=== PATIENT | female | born 1940 | race Caucasian/White ===

== ENCOUNTER 2016-12-05 12:23 | Day surgery (SDC) | payer OTHER ==
[~2016-12-05 12:23] MED LIST: ASPI1TAB69 PO; AZEL137S EACH NARE; CALC1TAB30 PO; DULC5TAB PO; GABA300C5 PO; HYDR-3580 PO; LEVO.075 PO; LISI40TA PO; MONT10TA4 PO; OMEG100037 PO; ONETAB13 PO; PANT40TA3 PO; PEPCCHW3 PO; PLAV75TA29 PO; PROP20TA3 PO; SIMV80TA PO; ZOLP10TA3 PO
[2016-12-05] MEDS ORDERED: MIDAZOLAM HCL 2 MG/2 ML VIAL ONE ×2 (12:58→14:08)
[2016-12-05] MEDS ORDERED: MUPIROCIN 2% OINT 1 APPLIC/GM SYR NASAL SCH (13:15)
[2016-12-05] MEDS ORDERED: NS 1000 ML IV SCH (13:15)
[2016-12-05] MEDS ORDERED: POVIDONE IODINE 5% (ANTISEPSIS KIT) 4 APPLICATIONS EACH NARE SCH (13:15)
[2016-12-05] MEDS ORDERED: CHLORHEXIDINE GLUCONATE 2 % 1 PACK (2 CLOTHS) TOP SCH (13:15)
[2016-12-05] MEDS ORDERED: ceFAZolin 2 GM PREMIX 50 ML IV SCH (13:15)
[2016-12-05] MEDS ORDERED: ALBU2TAB4 PO (13:32)
[2016-12-05] MEDS ORDERED: VERA120T3 PO (13:32)
[2016-12-05] MEDS ORDERED: AZEL1SPR2 EACH NARE ×2 (13:32)
[2016-12-05] MEDS ORDERED: CLON0.1T PO (13:32)
[2016-12-05] MEDS ORDERED: IPRASOL NEB (13:32)
[2016-12-05] MEDS ORDERED: ZOFR4TAB PO (13:32)
[2016-12-05] MEDS ORDERED: AZEL137S EACH NARE (13:32)
--- NOTE | 2016-12-05 15:04 | MR ---
cc: RITCHIE CORTEZ MD, BETH A. MD DATE: 12/05/2016. PREPROCEDURE DIAGNOSIS: Cryptogenic stroke. POSTPROCEDURE DIAGNOSIS: Successful loop recorder insertion. PROCEDURE PERFORMED: Loop recorder insertion. PERFORMING PHYSICIAN: Ritchie Cortez M.D. DESCRIPTION OF THE PROCEDURE: The patient was brought to the DOC unit in postabsorptive state. After informed consent was obtained, a [employer] LINQ loop recorder was inserted subcutaneously to the left chest. Because of the patient's left breast reconstruction, a more inferior approach was used to provide adequate clearance from her breast reconstruction. Initial R-wave was 0.22 mV. Tachybrady pause and atrial fibrillation detection was enabled. The serial number was [id number]. MD IVAN Brown/ALBINO /2:40 PM /3:01 PM
== END 2016-12-05 14:30 | disposition home or self-care (01) ==
LOC: HDOC 12:23 → HDIC 12:24 → HDOC 14:30
PROVIDERS: ATTEND Nuclear Medicine Nuclear Cardiology
DX: I48.91 Unspecified atrial fibrillation (principal); I63.9 Cerebral infarction, unspecified; I11.9 Hypertensive heart disease without heart failure; I25.10 Atherosclerotic heart disease of native coronary artery without angina pectoris
CPT/HCPCS: 33282; C1764; J0690; J2250; J3010; J7030

== ENCOUNTER 2017-01-28 15:23 | Observation (INO) | payer OTHER ==
[~2017-01-28] VITALS: Ht 165.1 cm; Wt 70.5 kg
[~2017-01-28 15:23] MED LIST changes: +ALBU2TAB4 PO; -ASPI1TAB69 PO; +AZEL1SPR2 EACH NARE; -CALC1TAB30 PO; +CLON0.1T PO; -DULC5TAB PO; -HYDR-3580 PO; +IPRASOL NEB; -LISI40TA PO; +VERA120T3 PO; +ZOFR4TAB PO
[2017-01-28 15:30] VITALS: BP 151/62; PULSE 55; RESP 20; TEMP 97.8; O2SAT 99
[2017-01-28] MEDS ORDERED: SODIUM CHLOR 0.9% 1000 ML INJ 1,000 ML IV ONE (15:38)
[2017-01-28] MEDS ORDERED: IOHEXOL 350 MG/ML 10 ML VIAL (for RAD DIAG) IV ONE (15:54)
[2017-01-28] MEDS ORDERED: SODIUM CHLORID 0.9% 500 ML INJ 500 ML IV ONE (16:00)
--- NOTE | 2017-01-28 16:01 | RADRPT ---
EXAM DATE/TIME: 01/28/2017 15:40 [facility] COMPARISON: CT BRAIN W/O CONTRAST, October 20, 2016, 11:34. INDICATIONS : Stroke alert; left sided weakness. RADIATION DOSE: 56.35 CTDIvol (mGy) This report was called by Dr. Kitchen to Dr. Jackson at 3: 56 PM MEDICAL HISTORY : Non-responsive. SURGICAL HISTORY : Non-responsive. ENCOUNTER: Initial ACUITY: 1 day PAIN SCALE: Non-responsive LOCATION: cranial TECHNIQUE: Multiple contiguous axial images were obtained of the head. Using automated exposure control and adj ustment of the mA and/or kV according to patient size, radiation dose was kept as low as reasonably a chievable to obtain optimal diagnostic quality images. FINDINGS: CEREBRUM: The ventricles are normal for age. No evidence of midline shift, mass lesion, hemorrhage or acute in farction. No extra-axial fluid collections are seen. There is decreased density in the periventricul ar white matter. POSTERIOR FOSSA: The cerebellum and brainstem are intact. The 4th ventricle is midline. The cerebellopontine angle i s unremarkable. EXTRACRANIAL: The visualized portion of the orbits is intact. SKULL: The calvaria is intact. No evidence of skull fracture. CONCLUSION: No acute abnormality, area of hemorrhage or mass effect is seen. There is decreased density in the pe riventricular white matter likely related to small vessel ischemic change. Bud Kitchen MD on January 28, 2017 at 15:56 Board Certified Radiologist. This report was verified electronically.
[2017-01-28 16:15] VITALS: BP 111/55; PULSE 59; RESP 15; O2SAT 97
--- NOTE | 2017-01-28 16:15 | PD ---
HPI Chief Complaint: Stroke Alert Time Seen by Provider: 15:38 Travel History International Travel<30 days: No Contact w/Intl Traveler<30days: No Traveled to known affect area: No History of Present Illness HPI Patient 76-year-old female presents emergency department for evaluation of left- sided weakness. Patient states symptoms onset approximately 40 minutes prior to arrival. 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 She states that she had a a stroke on the right side of her brain with some left-sided deficits which has completely resolved approximate 3 months ago. She denies any headache fevers congestions pain nausea vomiting or diarrhea. Denies any visual field loss. PFSH Past Medical History Arthritis: Yes Asthma: Yes Autoimmune Disease: No Blood Disorders: No Anxiety: No Depression: No Heart Rhythm Problems: No Cancer: Yes (LEFT BREAST, SMALL SQUAMOUS ON HER RIGHT LEG) Cardiovascular Problems: Yes (raynauds disease) High Cholesterol: Yes Chemotherapy: Yes Chest Pain: No Congestive Heart Failure: No COPD: No Cerebrovascular Accident: Yes (10/24/16) Diabetes: No Diminished Hearing: No Endocrine: No GERD: No Genitourinary: No Hiatal Hernia: No Hypertension: Yes Immune Disorder: No Kidney Stones: No Musculoskeletal: Yes Neurologic: No Psychiatric: No Reproductive: No Respiratory: Yes Migraines: Yes (13 years) Radiation Therapy: No Renal Failure: No Seizures: No Sickle Cell Disease: No Sleep Apnea: No Thyroid Disease: No Ulcer: No ?: Not Past Surgical History AICD: No Appendectomy: Yes Arteriovenous Shunt: No Genitourinary Surgery: Yes (BLADDER REPAIR) Gynecologic Surgery: Yes (HYSTERECTOMY) Hysterectomy: Yes Insulin Pump: No Joint Replacement: Yes Mastectomy: Yes (LEFT) Neurologic Surgery: Yes (HEAD TUMOR) Pacemaker: No Tonsillectomy: Yes Other Surgery: Yes Social History Alcohol Use: Yes (OCCAISIONAL) Tobacco Use: No Substance Use: No Allergies-Medications (Allergen,Severity, Reaction): Coded Allergies: Amlodipine (Verified Allergy, Severe, 01/28/17) Benadryl (Verified Allergy, Severe, 01/28/17) Hydrochlorothiazide (Verified Allergy, Severe, 01/28/17) Reported Meds & Prescriptions Reported Meds & Active Scripts Active Plavix (Clopidogrel Bisulfate) 75 Mg Tab 75 Mg PO DAILY Reported [place] (Hydrocodone-Acetaminophen) 10-325 Mg Tab 1 Tab PO BID PRN Linzess (Linaclotide) 145 Mcg Cap 145 Mcg PO HS Caltrate 600+D (Calcium Carbonate-Cholecalciferol) 600-800 Mg-Unit Tab 1 Tab PO DAILY Ventolin Hfa 18 GM Inh (Albuterol Sulfate) 90 Mcg/Act Aer 2 Puff INH DAILY PRN Crestor (Rosuvastatin Calcium) 40 Mg Tab 40 Mg PO HS Gabapentin 600 Mg Tab 600 Mg PO HS Verapamil (Verapamil HCl) 120 Mg Tab 120 Mg PO DAILY Zofran (Ondansetron HCl) 4 Mg Tab 4 Mg PO TID PRN Dymista Nasal [place] (Azelastine-Fluticasone Nasal [place]) 137-50 Mcg [place] 1 [place] EACH NARE DAILY To each nostril. Duoneb (Ipratropium-Albuterol Neb) 0.5-2.5 Mg/3 Ml Neb 1 Nebule NEB DAILY PRN Azelastine Nasal [place] (Azelastine HCl) 0.1% [place] 1 [place] EACH NARE DAILY Fish Oil 1000 mg (Angie-3 Fatty Acids) 1 Cap Cap 1,000 Mg PO DAILY One Daily For Women (Multiple Vitamins W/ Minerals) 1 Tab Tab 1 Tab PO DAILY Propranolol (Propranolol HCl) 20 Mg Tab 20 Mg PO HS Zolpidem (Zolpidem Tartrate) 10 Mg Tab 10 Mg PO HS Montelukast (Montelukast Sodium) 10 Mg Tab 10 Mg PO HS Pantoprazole (Pantoprazole Sodium) 40 Mg Tab 40 Mg PO DAILY Synthroid (Levothyroxine Sodium) 75 Mcg Tab 75 Mcg PO DAILY Review of Systems Except as stated in HPI: all other systems reviewed are Neg Physical Exam Narrative GENERAL: Well-developed well-nourished no apparent distress SKIN: Warm and dry. HEAD: Atraumatic. Normocephalic. EYES: Pupils equal and round. No scleral icterus. No injection or drainage. ENT: No nasal bleeding or discharge. Mucous membranes pink and moist. NECK: Trachea midline. No JVD. CARDIOVASCULAR: Regular rate and rhythm. No murmur appreciated. RESPIRATORY: No accessory muscle use. Clear to auscultation. Breath sounds equal bilaterally. GASTROINTESTINAL: Abdomen soft, non-tender, nondistended. Hepatic and splenic margins not palpable. MUSCULOSKELETAL: No obvious deformities. No clubbing. No cyanosis. No edema. NEUROLOGICAL: Awake alert and oriented. Cranial nerves II through XII are grossly intact and nonfocal, 5 out of 5 strength in upper and lower right extremities. 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 DTRs are normal, Babinski sign downgoing bilaterally. PSYCHIATRIC: Appropriate mood and affect; insight and judgment normal. Data Data Last Documented VS Vital Signs Date Time Temp Pulse Resp B/P Pulse Ox O2 Delivery O2 Flow Rate FiO2 01/28/17 18:00 59 21 126/59 98 Room Air 01/28/17 15:30 97.8 Orders Diet Npo (01/28/17 Dinner) Activity Bed Rest (01/28/17 ) Electrocardiogram (01/28/17 ) I-Stat Creatinine (01/28/17 15:38) I-Stat Profile (01/28/17 15:38) Prothrombin Time / Inr (Pt) (01/28/17 15:38) Act Partial Throm Time (Ptt) (01/28/17 15:38) Complete Blood Count With Diff (01/28/17 15:38) Fibrinogen (01/28/17 15:38) Creatine Kinase (Cpk) (01/28/17 15:38) Troponin I (01/28/17 15:38) Ua Includes Microscopic (01/28/17 15:38) Drug Screen, Random Urine (01/28/17 15:38) Type And Screen (01/28/17 15:38) Ct Brain W/O Iv Contrast(Rout) (01/28/17 ) Cta Brain W Iv Contrast W 3d (01/28/17 15:38) Cta Neck W Iv Contrast W 3d (01/28/17 15:38) Consult Neurology (01/28/17 ) Blood Glucose (01/28/17 15:38) Ecg Monitoring (01/28/17 15:38) Neuro Checks Q2HX12,Q4H (01/28/17 15:38) Nursing Bedside Swallow Assess .ONCE (01/28/17 15:38) Iv Access Insert/Monitor (01/28/17 15:38) NPO (01/28/17 15:38) Oximetry (01/28/17 15:38) Oxygen Administration (01/28/17 15:38) Sodium Chlor 0.9% 1000 Ml Inj (Ns 1000 M (01/28/17 15:38) Resp Oxygen Wilmer C Titrat 1-4 L (01/28/17 15:38) Cath For Specimen (01/28/17 15:38) Iohexol 350 Inj (Omnipaque 350 Inj) (01/28/17 15:54) Sodium Chlorid 0.9% 500 Ml Inj (Ns 500 M (01/28/17 16:00) [place] (01/28/17 15:56) (Hub Use Only)Inp Phy Cons/Ref (01/28/17 ) Aspirin Chew (Aspirin Chew) (01/28/17 17:30) Admit Order (Ed Use Only) (01/28/17 ) Labs Laboratory Tests Test 01/28/17 01/28/17 01/28/17 15:30 15:38 16:50 White Blood Count 6.8 TH/MM3 Red Blood Count 4.11 MIL/MM3 Hemoglobin 12.0 GM/DL Hematocrit 35.9 % Mean Corpuscular Volume 87.4 FL Mean Corpuscular Hemoglobin 29.3 PG Mean Corpuscular Hemoglobin 33.5 % Concent Red Cell Distribution Width 13.2 % Platelet Count 345 TH/MM3 Mean Platelet Volume 7.5 FL Neutrophils (%) (Auto) 55.8 % Lymphocytes (%) (Auto) 26.9 % Monocytes (%) (Auto) 13.3 % Eosinophils (%) (Auto) 3.0 % Basophils (%) (Auto) 1.0 % Neutrophils # (Auto) 3.8 TH/MM3 Lymphocytes # (Auto) 1.8 TH/MM3 Monocytes # (Auto) 0.9 TH/MM3 Eosinophils # (Auto) 0.2 TH/MM3 Basophils # (Auto) 0.1 TH/MM3 CBC Comment DIFF FINAL Differential Comment Prothrombin Time 10.7 SEC Prothromb Time International 1.0 RATIO Ratio Activated Partial 29.4 SEC Thromboplast Time Fibrinogen 275 mg/dL Blood Type O POSITIVE Antibody Screen NEGATIVE Bedside Hemoglobin 12.6 G/DL Bedside Hematocrit 37.0 % Bedside Sodium 133 MMOL/L Bedside Potassium 4.6 MMOL/L Bedside Chloride 99 MMOL/L Bedside Blood Urea Nitrogen 14 MG/DL Bedside Creatinine 1.1 MG/DL Bedside Glucose 99 MG/DL Total Creatine Kinase 104 U/L Troponin I LESS THAN 0.02 NG/ML Urine Color YELLOW Urine Turbidity CLEAR Urine pH 5.5 Urine Specific Harmans 1.023 Urine Protein NEG mg/dL Urine Glucose (UA) NEG mg/dL Urine Ketones NEG mg/dL Urine Occult Blood NEG Urine Nitrite NEG Urine Bilirubin NEG Urine Urobilinogen LESS THAN 2.0 MG/DL Urine Leukocyte Esterase NEG Urine RBC LESS THAN 1 /hpf Urine WBC LESS THAN 1 /hpf Urine Squamous Epithelial 2 /hpf Cells Urine Oval Fat Bodies Urine Opiates Screen POS Urine Barbiturates Screen NEG Urine Amphetamines Screen NEG Urine Benzodiazepines Screen NEG Urine Cocaine Screen NEG Urine Cannabinoids Screen NEG MDM Medical Screen Exam Complete: Yes Emergency Medical Condition: Yes Differential Diagnosis TIA, stroke, altered mental status, intracranial bleed Narrative Course Patient was roomed in the emergency department, recognizing left-sided deficits which are mild patient does meet stroke alert criteria stroke alert was called. Patient was discussed with Dr. Chavez prior to her going to CAT scan. At this point the patient's NIH scale is 2 for me the adult daycare coordinator actually got a score of 1. This is contraindication to TPA. We discussed that unless her symptoms started to worsen she will not be a candidate for TPA. Patient was taken to CAT scan she had no evidence of bleed, CT angios performed after i-STAT chemistries were obtained and showed a 40% stenosis of the left ICA origin which is unchanged from her previous CTA. This is a hemodynamically insignificant stenosis. No bleeding occlusion was seen on her CTA and no other lesion was reported by radiology. Last 24 hours Impressions Neck CTA 01/28/17 1538 Signed Impressions: Service Date/Time: Saturday, January 28, 2017 15:41 - CONCLUSION: Stable exam without hemodynamically significant stenosis involving either carotid artery. An ulcerated plaque generates a 40%% stenosis of the left ICA origin. Kee Ellison Jr., MD Head CTA 01/28/17 1538 Signed Impressions: Service Date/Time: Saturday, January 28, 2017 15:41 - CONCLUSION: 1. No filling defects. 2. Unchanged stenosis involving the distal left M1. 3. Variant anatomy. Kee Ellison Jr., MD Head CT 01/28/17 0000 Signed Impressions: Service Date/Time: Saturday, January 28, 2017 15:40 - CONCLUSION: No acute abnormality, area of hemorrhage or mass effect is seen. There is decreased density in the periventricular white matter likely related to small vessel ischemic change. Bud Kitchen MD Results were discussed with the patient she was head of bed flat and given 500 cc of normal saline. Cautioned advised that she does have a history of CHF. On my reassessment the patient now has 5 out of 5 strength in left upper extremity left lower extremity and appears to have resolved. By definition this is a TIA. Dr. Chavez has arrived to evaluate the patient after her resolution of symptoms. He agrees for observation status for TIA workup. Critical Care Narrative Aggregate critical care time was 31 minutes. Time to perform other separately billable procedures was not included in the critical care time. My time did not include minutes spent treating any other patients simultaneously or on activities that did not directly contribute to the patient's treatment. The services I provided to this patient were to treat and/or prevent clinically significant deterioration that could result in: [, permanent disability, intracranial hemorrhage, organ failure. I provided critical care services requiring my management, as noted below: Chart data review, documentation time, medication orders and management, vital sign assessments/reviewing monitor data, ordering and reviewing lab tests, ordering and interpreting/reviewing x-rays and diagnostic studies, care of the patient and discussion of the patient with the admitting physicians. Stroke Alert NIHSS NIH Stroke Scale Result: 2 NIHSS Time Completed: 15:33 Thrombolytic Contraindications Contraindications Comment: NIH scale too low, resolving Diagnosis Diagnosis: Primary Impression: TIA (transient ischemic attack) Qualified Code: G45.9 - Transient cerebral ischemia, unspecified type Admitting Physician Requests: Observation Scripts Aspirin 325 Mg [id number] Mg PO DAILY #30 TAB Ref 0 Prov:Carie Carlin MD 01/29/17 Condition: Stable Pranav Jackson MD Jan 28, 2017 16:15
--- NOTE | 2017-01-28 16:22 | RADRPT ---
EXAM DATE/TIME: 01/28/2017 15:41 [facility] COMPARISON: CTA BRAIN W 3D RECON, October 23, 2016, 10:40. INDICATIONS : Stroke alert; left sided weakness. IV CONTRAST: 79 cc Omnipaque 350 (iohexol) IV ; Cumulative dose for multiple exams. RADIATION DOSE: 14.32 CTDIvol (mGy) ; Combined studies - Thorax/Abdomen/Pelvis MEDICAL HISTORY : Non-responsive. SURGICAL HISTORY : Non-responsive. ENCOUNTER: Initial ACUITY: 1 day PAIN SCALE: Non-responsive LOCATION: cranial TECHNIQUE: Volumetric scanning was performed using a multi-row detector CT scanner. The data was post processed with a variety of visualization algorithms including full volume maximum intensity projection, multi -planar sliding thin slab reformation, curved planar reformation, and surface rendering techniques. Using automated exposure control and adjustment of the mA and/or kV according to patient size, radiat ion dose was kept as low as reasonably achievable to obtain optimal diagnostic quality images. FINDINGS: There is excellent visualization of the major intracranial arteries out to the second-order branch ve ssels. There is variant anatomy. There is persistent circulation bilaterally. The basilar arter y is supplied via the right vertebral artery. The left terminates in a PICA distribution. A focal bill nosis is seen involving the distal aspects of the left M2 with a 50-60% stenosis. This is stable from the prior study. The remaining vessels are unremarkable. No filling defects observed. There is no ev idence for aneurysm or evidence for vascular malformation. CONCLUSION: 1. No filling defects. 2. Unchanged stenosis involving the distal left M1. 3. Variant anatomy. Kee Ellison Jr., MD on January 28, 2017 at 16:12 Board Certified Radiologist. This report was verified electronically.
--- NOTE | 2017-01-28 16:27 | RADRPT ---
EXAM DATE/TIME: 01/28/2017 15:41 [facility] COMPARISON: CTA CAROTID ARTERIES W 3D RECON, October 23, 2016, 10:40. INDICATIONS : Stroke alert; left sided weakness. IV CONTRAST: 79 cc Omnipaque 350 (iohexol) IV ; Cumulative dose for multiple exams. RADIATION DOSE: 14.32 CTDIvol (mGy) ; Combined studies - Brain/Cervical Spine MEDICAL HISTORY : Non-responsive. SURGICAL HISTORY : Non-responsive. ENCOUNTER: Initial ACUITY: 1 day PAIN SCALE: Non-responsive LOCATION: neck Elevated flow velocities and ICA/CCA ratios have been found to correlate with increased degrees of vessel stenosis, calculated as percentage of diameter relative to a normal segment of distal ICA/CCA. TECHNIQUE: Volumetric scanning was performed using a multirow detector CT scanner. The data was post processed with a variety of visualization algorithms including full-volume maximum intensity projection, multip lanar sliding thin-slab reformation, curved-planar reformation, and surface-rendering techniques. Us ing automated exposure control and adjustment of the mA and/or kV according to patient size, radiatio n dose was kept as low as reasonably achievable to obtain optimal diagnostic quality images. FINDINGS: AORTIC ARCH: There is a three-vessel origin of the great vessels from the aorta. No evidence of ostial narrowing. RIGHT CAROTID: Scattered calcified plaque without ulceration or luminal narrowing utilizing NASCET criteria. There i s a high grade stenosis of the origin of the external carotid artery. The internal carotid artery and common carotid artery are patent. LEFT CAROTID: Partially calcified atheromatous plaque generates a 40% stenosis of the ICA origin. This is also rela krys. The appearance is stable. The CCA, ECA, and remaining extracranial ICA are patent. VERTEBRALS: The vertebral arteries have a symmetric diameter. No stenotic lesions are seen. CONCLUSION: Stable exam without hemodynamically significant stenosis involving either carotid artery. An ulcerate d plaque generates a 40% stenosis of the left ICA origin. Kee Ellison Jr., MD on January 28, 2017 at 16:20 Board Certified Radiologist. This report was verified electronically.
[2017-01-28 16:41] LABS: I-STAT POTASSIUM 4.6 MMOL/L (3.5-4.9); I-STAT SODIUM 133 MMOL/L (138-146)
[2017-01-28 17:01] LABS: CREATINE KINASE 104 U/L (26-192)
[2017-01-28] MEDS ORDERED: GABA600T PO (17:21)
[2017-01-28] MEDS ORDERED: ROSU40 PO (17:21)
[2017-01-28] MEDS ORDERED: VENTAER INH (17:22)
[2017-01-28] MEDS ORDERED: CALTTAB PO (17:22)
[2017-01-28] MEDS ORDERED: LINA145C PO (17:22)
[2017-01-28] MEDS ORDERED: HYDR-3366 PO (17:25)
[2017-01-28 17:26] LABS: BLOOD, URINE NEG (NEG); GLUCOSE,URINE NEG (NEG); KETONE, URINE NEG (NEG); NITRITE,URINE NEG (NEG); PH, URINE 5.5 (5.0-8.5); SQUAMOUS EPITHELIAL CELL URINE 2 /hpf (0-5); URINE COLOR YELLOW (YELLW/STRAW)
[2017-01-28 17:29] LABS: AMPHETAMINE, URINE NEG (NEG); BARBITURATES, URINE NEG (NEG); COCAINE, URINE NEG (NEG)
[2017-01-28] MEDS ORDERED: ASPIRIN 81 MG CHEW TAB CHEW ONE (17:30)
[2017-01-28 17:31] LABS: AUTOMATED NEUTROPHIL # 3.8 TH/MM3 (1.8-7.7); BASOPHIL # 0.1 TH/MM3 (0-0.2); EOSINOPHIL # 0.2 TH/MM3 (0-0.4); HEMATOCRIT 35.9 % (35.0-46.0); HEMO FLAGS DIFF FINAL; LYMPH % 26.9 % (9.0-44.0); LYMPHOCYTE # 1.8 TH/MM3 (1.0-4.8); MEAN CELL VOLUME 87.4 FL (80.0-100.0); MEAN CORPUSCULAR HEMOGLOBIN 29.3 PG (27.0-34.0); MEAN CORPUSCULAR HGB CONC 33.5 % (32.0-36.0); MONO % 13.3 % (0.0-8.0); NEUT % 55.8 % (16.0-70.0); PLATELET COUNT 345 TH/MM3 (150-450); RED BLOOD COUNT 4.11 MIL/MM3 (4.00-5.30); RED CELL DISTRIBUTION WIDTH 13.2 % (11.6-17.2); WHITE BLOOD COUNT 6.8 TH/MM3 (4.0-11.0)
[2017-01-28 17:45] LABS: APTT (PATIENT) 29.4 SEC (24.3-30.1); PROTHROMBIN TIME - PATIENT 10.7 SEC (9.8-11.6)
[2017-01-28 18:00] VITALS: BP 126/59; PULSE 59; RESP 21; O2SAT 98
--- NOTE | 2017-01-28 20:20 | MB ---
cc: ROSANNA VALLJEO M.D. DATE OF CONSULTATION: 01/28/2017 REASON FOR CONSULTATION: HISTORY OF PRESENT ILLNESS: The patient is a 76 year-old woman seen in neurological consultation. A stroke alert was called. I spoke to Dr. Gilmore from the emergency room. The patient developed some left arm weakness and some probable left leg weakness. She was brought to the hospital. Her deficits were very mild with NIHSS being around 2. She seemed to be improving. CT brain was negative. We felt she was not a candidate for TPA. She has done well. She went to have a CT angio of the head and neck that was stable in comparison to the study from October of last year. I also saw her at that time with somewhat similar symptoms. She follows with Dr. Escalante for outpatient care. Apparently she had recent MR venous in the office which was negative as per . She has been taking a baby aspirin and Plavix daily. She is on a statin. She has a history of migraine headaches and has been treated with Botox before. LDL was 58 in October when she was evaluated for the same symptomatology. In October she also had an MRI showing possible ischemic infarcts on the right parietooccipital watershed region. NEUROLOGICAL EXAMINATION: The neurologic exam is showing an alert pleasant woman. Mentation is normal. Ocular movements and visual hsu full. She is now moving all four extremities equally at bedside with a good slubber runner. Acgpbz-[id number] testing normal. Reflexes trace versus absent and plantar responses are flexor. Position sense preserved in the distal lower extremities. LABORATORY DATA: CBC is essentially normal. Sodium 133, potassium normal. BUN 14, creatinine 1.1. INR 1.0. ASSESSMENT Presumed TIA. There is a history of migraines and the possibility of a complicated migraine is also a consideration. She is having some headache after the onset of the symptoms. I have asked the nursing staff to give her some Tylenol. At this point I elected to increase the aspirin to 325 milligrams a day along with the Plavix and this was discussed with Dr. Gilmore. I am going to order MRI brain for comparison with the previous study. She will be observed for one to two days and then will be followed by Dr. Escalante, her usual neurologist. Thank you for asking us to assist in her care. MD FITO Torres/KRYSTIN /6:05 PM /7:16 PM
--- NOTE | 2017-01-28 21:23 | HHI.HP ---
[facility] Service [facility] Primary Care Physician Cecilia Saeed Do, MD Admission Diagnosis TIA Diagnoses: Chief Complaint: Left upper extremity numbness, weakness, tingling Travel History International Travel<30 Days: No Contact w/Intl Traveler <30 Da: No Traveled to Known Affected Are: No History of Present Illness History from patient with his at the bedside. The patient reported that she was feeling extremely weak on her left upper extremity with feeling off of deadweight on her left upper extremity around noon today. She reports that her weakness and numbness had completely resolved by the time she arrived emergency room which is about 1.5 hours later She states that she had similar symptoms back in October and she was told she had a stroke at that time. Therefore as the symptoms continued and was not improving, he she decided to bring her to hospital. Patient denies any other symptoms such as chest pain/palpitations/dizziness/ syncopal episodes. Denies any recent fever/nausea/vomiting/diarrhea/urinary burning or pain on urination. Patient's prior records on EMRreviewed. 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 She reports that she also since had loop recorder placed. So far no episodes of A. fib reported. 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 Stated she quit smoking in 1987. Physical Exam Vital Signs Vital Signs Date Time Temp Pulse Resp B/P Pulse Ox O2 Delivery O2 Flow Rate FiO2 01/28/17 18:00 59 21 126/59 98 Room Air 01/28/17 16:22 98 Room Air 01/28/17 16:15 59 15 111/55 97 Room Air 01/28/17 15:30 97.8 55 20 151/62 99 Physical Exam GENERAL: This is a well-nourished, well-developed patient, in no apparent distress. SKIN: No rashes, ecchymoses or lesions. Cool and dry. HEAD: Atraumatic. Normocephalic. No temporal or scalp tenderness. EYES: . No scleral icterus. No injection or drainage. ENT: Nose without bleeding, purulent drainage or septal hematoma Airway patent. NECK: Trachea midline. No JVD CARDIOVASCULAR: Regular rate and rhythm without murmurs, gallops, or rubs. RESPIRATORY: Clear to auscultation. Breath sounds equal bilaterally. No wheezes , rales, or rhonchi. GASTROINTESTINAL: Abdomen soft, non-tender, nondistendedNo guarding. MUSCULOSKELETAL: Extremities without clubbing, cyanosis, or edema. . No calf tenderness. NEUROLOGICAL: Awake and alert. Motor and sensory grossly within normal limits. Normal speech. No focal deficits. Power 5 out of 5 in all 4 limbs Laboratory Laboratory Tests Test 01/28/17 01/28/17 01/28/17 15:30 15:38 16:50 White Blood Count 6.8 Red Blood Count 4.11 Hemoglobin 12.0 Hematocrit 35.9 Mean Corpuscular Volume 87.4 Mean Corpuscular Hemoglobin 29.3 Mean Corpuscular Hemoglobin 33.5 Concent Red Cell Distribution Width 13.2 Platelet Count 345 Mean Platelet Volume 7.5 Neutrophils (%) (Auto) 55.8 Lymphocytes (%) (Auto) 26.9 Monocytes (%) (Auto) 13.3 Eosinophils (%) (Auto) 3.0 Basophils (%) (Auto) 1.0 Neutrophils # (Auto) 3.8 Lymphocytes # (Auto) 1.8 Monocytes # (Auto) 0.9 Eosinophils # (Auto) 0.2 Basophils # (Auto) 0.1 CBC Comment DIFF FINAL Differential Comment Prothrombin Time 10.7 Prothromb Time International 1.0 Ratio Activated Partial 29.4 Thromboplast Time Fibrinogen 275 Blood Type O POSITIVE Antibody Screen NEGATIVE Bedside Hemoglobin 12.6 Bedside Hematocrit 37.0 Bedside Sodium 133 Bedside Potassium 4.6 Bedside Chloride 99 Bedside Blood Urea Nitrogen 14 Bedside Creatinine 1.1 Bedside Glucose 99 Total Creatine Kinase 104 Troponin I LESS THAN 0.02 Urine Color YELLOW Urine Turbidity CLEAR Urine pH 5.5 Urine Specific [place] 1.023 Urine Protein NEG Urine Glucose (UA) NEG Urine Ketones NEG Urine Occult Blood NEG Urine Nitrite NEG Urine Bilirubin NEG Urine Urobilinogen LESS THAN 2.0 Urine Leukocyte Esterase NEG Urine RBC LESS THAN 1 Urine WBC LESS THAN 1 Urine Squamous Epithelial 2 Cells Urine Oval Fat Bodies Urine Opiates Screen POS Urine Barbiturates Screen NEG Urine Amphetamines Screen NEG Urine Benzodiazepines Screen NEG Urine Cocaine Screen NEG Urine Cannabinoids Screen NEG Result Diagram: 01/28/17 1530 Imaging Last 48 hours Impressions Neck CTA 01/28/17 1538 Signed Impressions: Service Date/Time: Saturday, January 28, 2017 15:41 - CONCLUSION: Stable exam without hemodynamically significant stenosis involving either carotid artery. An ulcerated plaque generates a 40%% stenosis of the left ICA origin. Kee Ellison Jr., MD Head CTA 01/28/17 1538 Signed Impressions: Service Date/Time: Saturday, January 28, 2017 15:41 - CONCLUSION: 1. No filling defects. 2. Unchanged stenosis involving the distal left M1. 3. Variant anatomy. Kee Ellison Jr., MD Head CT 01/28/17 0000 Signed Impressions: Service Date/Time: Saturday, January 28, 2017 15:40 - CONCLUSION: No acute abnormality, area of hemorrhage or mass effect is seen. There is decreased density in the periventricular white matter likely related to small vessel ischemic change. Bud Kitchen MD Assessment and Plan Problem List: (1) TIA (transient ischemic attack) ICD Code: G45.9 Status: Acute Assessment and Plan Impression: TIA History of previous CVA in October 2016 History of hypertension History of anti-thrombin 3 gene mutation History of breast CA Former smokerquit in 1987 Plan: Permissive hypertension. Head of bed flat. TIA workup-neurology. Patient was already evaluated by neurologists in ER. We'll follow-up imaging studies records. MRI studies cannot be done as patient has loop recorder placed. For now, I would continue aspirin and Plavix for anticoagulation. Since patient already developed a second episode of TIA while on anticoagulation with aspirin and Plavix, she likely is a candidate for an alternative stronger anticoagulation. However we will leave this decision up to the neurologist and patient's road hogger operator. DVT prophylaxiswith SCD. Discussed Condition With Patient, ER physician Problem Qualifiers (1) TIA (transient ischemic attack): Qualified Code: G45.9 - Transient cerebral ischemia, unspecified type Kim Hernandez MD Jan 28, 2017 21:23
[2017-01-28 21:47] VITALS: BP 115/58
[2017-01-28 23:27] VITALS: BP 151/70; PULSE 65; RESP 20; TEMP 98.1; O2SAT 95
[2017-01-29] MEDS ORDERED: ACETAMINOPHEN 325 MG TAB PO PRN (00:15)
[2017-01-29] MEDS ORDERED: RESP: ALBUTEROL 2.5 MG/IPRATROPIUM 0.5 MG NEB (PRN) NEB (00:15)
[2017-01-29] MEDS ORDERED: ACETAMINOPHEN/HYDROcodone 325 MG/10 MG TAB PO PRN (00:15)
[2017-01-29] MEDS ORDERED: ALBUTEROL SULFATE 90 MCG/ACT HFA 8 GM INHALER INH PRN (00:15)
[2017-01-29] MEDS ORDERED: ONDANSETRON ODT 4 MG TAB PO PRN (00:30)
[2017-01-29 05:21] VITALS: BP 110/58; PULSE 70; RESP 20; TEMP 97.9; O2SAT 96
--- NOTE | 2017-01-29 06:49 | HHI.PR ---
Review/Management Daily Summary doing well no recurrence of hemiparesis exam benign neuro, alert and oriented mild headache/tylenol effective unable to do MRI due to loop recorder ok to d/c on Asa 325 plus plavix follow up with dr Escalante Subjective Subjective Comments No acute events reported Mild headache No chest pain No dyspnea Active Medications Current Medications Medications (Trade) Dose Ordered Sig/Kavitha Route Start Time Stop Time Status Last Admin (Proair Hfa Inh) 2 puff DAILY PRN INH 01/29/17 00:15 (Plavix) 75 mg DAILY PO 01/29/17 09:00 (Neurontin) 600 mg HS PO 01/29/17 21:00 (Noel 10-325 Mg) 1 tab BID PRN PO 01/29/17 00:15 (Synthroid) 75 mcg DAILY PO 01/29/17 09:00 (Singulair) 10 mg HS PO 01/29/17 21:00 (Protonix) 40 mg DAILY PO 01/29/17 09:00 (Inderal) 20 mg HS PO 01/29/17 21:00 (Isoptin) 120 mg DAILY PO 01/29/17 09:00 (Ambien) 10 mg HS PO 01/29/17 21:00 Patient Own Medication PT OWN MED: LINACLOT... HS PO 01/29/17 21:00 Future Hold (Zofran Odt) 4 mg TID PRN PO 01/29/17 00:30 (Tylenol) 650 mg Q4H PRN PO 01/29/17 00:15 01/29/17 00:42 (Lipitor) 80 mg HS PO 01/29/17 21:00 Allergies Allergies Coded Allergies Amlodipine (Verified Allergy, Severe, 01/28/17) Benadryl (Verified Allergy, Severe, 01/28/17) Hydrochlorothiazide (Verified Allergy, Severe, 01/28/17) Exam I&O / VS Vital Signs Date Time Temp Pulse Resp B/P Pulse Ox O2 Delivery O2 Flow Rate FiO2 01/29/17 05:21 97.9 70 20 110/58 96 01/28/17 23:27 98.1 65 20 151/70 95 01/28/17 21:47 62 18 115/58 99 01/28/17 18:00 59 21 126/59 98 Room Air 01/28/17 16:22 98 Room Air 01/28/17 16:15 59 15 111/55 97 Room Air 01/28/17 15:30 97.8 55 20 151/62 99 Objective Radiology Results Last 48 hours Impressions Neck CTA 01/28/17 1538 Signed Impressions: Service Date/Time: Saturday, January 28, 2017 15:41 - CONCLUSION: Stable exam without hemodynamically significant stenosis involving either carotid artery. An ulcerated plaque generates a 40%% stenosis of the left ICA origin. Kee Ellison Jr., MD Head CTA 01/28/17 1538 Signed Impressions: Service Date/Time: Saturday, January 28, 2017 15:41 - CONCLUSION: 1. No filling defects. 2. Unchanged stenosis involving the distal left M1. 3. Variant anatomy. Kee Ellison Jr., MD Head CT 01/28/17 0000 Signed Impressions: Service Date/Time: Saturday, January 28, 2017 15:40 - CONCLUSION: No acute abnormality, area of hemorrhage or mass effect is seen. There is decreased density in the periventricular white matter likely related to small vessel ischemic change. Bud Kitchen MD Micro and Labs Laboratory Tests Test 01/28/17 01/28/17 01/28/17 15:30 15:38 16:50 White Blood Count 6.8 Red Blood Count 4.11 Hemoglobin 12.0 Hematocrit 35.9 Mean Corpuscular Volume 87.4 Mean Corpuscular Hemoglobin 29.3 Mean Corpuscular Hemoglobin 33.5 Concent Red Cell Distribution Width 13.2 Platelet Count 345 Mean Platelet Volume 7.5 Neutrophils (%) (Auto) 55.8 Lymphocytes (%) (Auto) 26.9 Monocytes (%) (Auto) 13.3 Eosinophils (%) (Auto) 3.0 Basophils (%) (Auto) 1.0 Neutrophils # (Auto) 3.8 Lymphocytes # (Auto) 1.8 Monocytes # (Auto) 0.9 Eosinophils # (Auto) 0.2 Basophils # (Auto) 0.1 CBC Comment DIFF FINAL Differential Comment Prothrombin Time 10.7 Prothromb Time International 1.0 Ratio Activated Partial 29.4 Thromboplast Time Fibrinogen 275 Blood Type O POSITIVE Antibody Screen NEGATIVE Bedside Hemoglobin 12.6 Bedside Hematocrit 37.0 Bedside Sodium 133 Bedside Potassium 4.6 Bedside Chloride 99 Bedside Blood Urea Nitrogen 14 Bedside Creatinine 1.1 Bedside Glucose 99 Total Creatine Kinase 104 Troponin I LESS THAN 0.02 Urine Color YELLOW Urine Turbidity CLEAR Urine pH 5.5 Urine Specific [place] 1.023 Urine Protein NEG Urine Glucose (UA) NEG Urine Ketones NEG Urine Occult Blood NEG Urine Nitrite NEG Urine Bilirubin NEG Urine Urobilinogen LESS THAN 2.0 Urine Leukocyte Esterase NEG Urine RBC LESS THAN 1 Urine WBC LESS THAN 1 Urine Squamous Epithelial 2 Cells Urine Oval Fat Bodies Urine Opiates Screen POS Urine Barbiturates Screen NEG Urine Amphetamines Screen NEG Urine Benzodiazepines Screen NEG Urine Cocaine Screen NEG Urine Cannabinoids Screen NEG Cade Chavez MD Jan 29, 2017 06:49
[2017-01-29 08:10] VITALS: BP 131/69; PULSE 73; RESP 18; TEMP 98.4; O2SAT 99
[2017-01-29] MEDS ORDERED: CLOPIDOGREL 75 MG TAB PO SCH (09:00)
[2017-01-29] MEDS ORDERED: LEVOTHYROXINE SODIUM 75 MCG TAB PO SCH (09:00)
[2017-01-29] MEDS ORDERED: VERAPAMIL HCL 120 MG TAB PO SCH (09:00)
[2017-01-29] MEDS ORDERED: PANTOPRAZOLE SOD 40 MG DELAYED RELEASE TAB PO SCH (09:00)
[2017-01-29 09:23] VITALS: O2SAT 99
[2017-01-29] MEDS ORDERED: ASPI325T PO (09:59)
--- NOTE | 2017-01-29 10:00 | HHI.DCPOC ---
Discharge Care Plan Diagnosis: (1) TIA (transient ischemic attack) Goals to Promote Your Health * To prevent worsening of your condition and complications * To maintain your health at the optimal level Directions to Meet Your Goals Take your medications as prescribed Follow your dietary instruction Follow activity as directed Keep your appointments as scheduled Take your immunizations and boosters as scheduled If your symptoms worsen call your PCP, if no PCP go to Urgent Care Center or Emergency Room Smoking is Dangerous to Your Health. Avoid second hand smoke Call the 24-hour hour crisis hotline for domestic abuse at Carie Carlin MD Jan 29, 2017 10:00
--- NOTE | 2017-01-29 10:01 | HHI.PR ---
Subjective Remarks Patient seen in follow-up for TIA. No new neurological symptoms. Back at baseline. She was cleared by neurology for discharge to follow up outpatient. Objective Vitals Vital Signs Date Time Temp Pulse Resp B/P Pulse Ox O2 Delivery O2 Flow Rate FiO2 01/29/17 09:23 99 21 01/29/17 08:10 98.4 73 18 131/69 99 01/29/17 05:21 97.9 70 20 110/58 96 01/28/17 23:27 98.1 65 20 151/70 95 01/28/17 21:47 62 18 115/58 99 01/28/17 18:00 59 21 126/59 98 Room Air 01/28/17 16:22 98 Room Air 01/28/17 16:15 59 15 111/55 97 Room Air 01/28/17 15:30 97.8 55 20 151/62 99 Result Diagram: 01/28/17 1530 Imaging Last Impressions Neck CTA 01/28/17 1538 Signed Impressions: Service Date/Time: Saturday, January 28, 2017 15:41 - CONCLUSION: Stable exam without hemodynamically significant stenosis involving either carotid artery. An ulcerated plaque generates a 40%% stenosis of the left ICA origin. Kee Ellison Jr., MD Head CTA 01/28/17 1538 Signed Impressions: Service Date/Time: Saturday, January 28, 2017 15:41 - CONCLUSION: 1. No filling defects. 2. Unchanged stenosis involving the distal left M1. 3. Variant anatomy. Kee Ellison Jr., MD Head CT 01/28/17 0000 Signed Impressions: Service Date/Time: Saturday, January 28, 2017 15:40 - CONCLUSION: No acute abnormality, area of hemorrhage or mass effect is seen. There is decreased density in the periventricular white matter likely related to small vessel ischemic change. Bud Kitchen MD Objective Remarks GENERAL: This is a well-nourished, well-developed patient, in no apparent distress. CARDIOVASCULAR: Normal rate and regular rhythm without murmurs, gallops, or rubs. RESPIRATORY: Good respiratory efforts. Breath sounds equal and clear to auscultation bilaterally. GASTROINTESTINAL: Abdomen soft, non-tender, non-distended. Normal active bowel sounds MUSCULOSKELETAL: Extremities without cyanosis, or edema. NEURO: Alert & Oriented x4 to person, place, time, situation. Moves all ext x4 PSYCH: Appropriate mood and affect. A/P Problem List: (1) TIA (transient ischemic attack) ICD Code: G45.9 Status: Acute Assessment and Plan 76-year-old female admitted with TIA: Patient symptoms completely resolved. She was evaluated by Neurology. Recommendation is for the patient to increase Aspirin to 325mg and continue Plavix. She is to follow up with her Neurologist Dr. Escalante outpatient. Discharge home in good condition Follow-up: With Dr. Enriquez outpatient Meds: Per med rec Activities: Regular as tolerated Diet: Heart healthy. Problem Qualifiers (1) TIA (transient ischemic attack): Qualified Code: G45.9 - Transient cerebral ischemia, unspecified type Carie Carlin MD Jan 29, 2017 10:01
--- NOTE | 2017-01-29 14:03 | EKG ---
Date Performed: 01/28/2017 Time Performed: 16:09:20 PTAGE: 76 years EKG: SINUS BRADYCARDIA BORDERLINE ECG PREVIOUS TRACING : 10/20/2016 11.24 DOCTOR: Johnnie Posey Interpretating Date/Time 01/29/2017 13:56:44
[2017-01-29] MEDS ORDERED: ZOLPIDEM TARTRATE 10 MG TAB PO SCH (21:00)
[2017-01-29] MEDS ORDERED: GABAPENTIN 300 MG CAP PO SCH (21:00)
[2017-01-29] MEDS ORDERED: LINACLOTIDE 145 MCG PO SCH (21:00)
[2017-01-29] MEDS ORDERED: MONTELUKAST SODIUM 10 MG TAB PO SCH (21:00)
[2017-01-29] MEDS ORDERED: NON-FORMULARY DRUG (Rosuvastatin (Crestor) 40 MG) PO SCH (21:00)
[2017-01-29] MEDS ORDERED: ATORVASTATIN 80 MG TAB PO SCH (21:00)
[2017-01-29] MEDS ORDERED: PROPRANOLOL HCL 20 MG TAB PO SCH (21:00)
== END 2017-01-29 12:21 | disposition home or self-care (01) ==
LOC: NEPC 15:23 → NEDA 18:21 → NEPGCP 23:19
PROVIDERS: ADMIT Family Medicine; ATTEND Family Medicine
DX: G45.9 Transient cerebral ischemic attack, unspecified (principal); I11.0 Hypertensive heart disease with heart failure; I50.9 Heart failure, unspecified; J45.909 Unspecified asthma, uncomplicated; E78.00 Pure hypercholesterolemia, unspecified; M19.90 Unspecified osteoarthritis, unspecified site; I10 Essential (primary) hypertension; Z79.02 Long term (current) use of antithrombotics/antiplatelets; Z79.82 Long term (current) use of aspirin; Z87.891 Personal history of nicotine dependence; Z85.3 Personal history of malignant neoplasm of breast
CPT/HCPCS: 70450; 70496; 70498; 80307; 81001; 82435; 82550; 82565; 82947; 84132; 84295; 84484; 84520; 85025; 85384; 85610; 85730; 86850; 86900; 86901; 92610; 93005; 96360; 97163; 97166; 99291; G0378; G8987; G8988; G8989; G8996; G8997; G8998; J7030; J7040; Q9967

== ENCOUNTER 2017-03-19 15:14 | Inpatient (IN) | payer OTHER, MEDICARE ==
[~2017-03-19] VITALS: Ht 165.1 cm; Wt 65.0 kg
[~2017-03-19 15:14] MED LIST changes: -ALBU2TAB4 PO; +ASPI325T PO; +CALTTAB PO; -CLON0.1T PO; -GABA300C5 PO; +GABA600T PO; +HYDR-3366 PO; +LINA145C PO; -PEPCCHW3 PO; +ROSU40 PO; -SIMV80TA PO; +VENTAER INH
[2017-03-19 15:18] VITALS: BP 178/94; PULSE 94; RESP 17; TEMP 97.9; O2SAT 98
--- NOTE | 2017-03-19 15:22 | PD ---
Physical Exam Date Seen by Provider: March 19, 2017 Time Seen by Provider: 15:19 Narrative Yesterday morning pt fell at 0700, after that she has right sided weakness. denies any slurring of her speech, no facial drooping. Pt was advised to come to the ED by her PCP who she notified of these symptoms today. Pt was not evaluated yesterday when symptoms started. HX of left sided CVA. VSS, awaiting bed placement. Data Data Last Documented VS Vital Signs Date Time Temp Pulse Resp B/P Pulse Ox O2 Delivery O2 Flow Rate FiO2 03/19/17 15:18 97.9 94 17 178/94 98 MDM Supervised Visit with MARIA VICTORIA: Debbie Villanueva March 19, 2017 15:22
[2017-03-19 15:30] VITALS: BP 154/90; PULSE 88; RESP 16; O2SAT 96
[2017-03-19] MEDS ORDERED: SODIUM CHLORIDE 0.9% FLUSH 10 ML FLUSH IVF PRN (16:00)
--- NOTE | 2017-03-19 16:04 | PD ---
HPI Chief Complaint: Neuro Symptoms/ Deficits Time Seen by Provider: 15:58 Travel History International Travel<30 days: No Contact w/Intl Traveler<30days: No Traveled to known affect area: No History of Present Illness HPI 76 year old elderly female presents to the emergency department for evaluation of possible stroke. She states that yesterday morning, she woke up and could not move her right side. This caused her to fall hitting the back of her head. She denies LOC. Patient did not come to the emergency department at that time. She states that throughout the day, she was able to move her right arm and right leg. Patient was last seen normal on March 17 before going to bed. The patient denies any headache. She denies any chest pain or shortness of breath. No nausea, vomiting, diarrhea. She is on Plavix for previous CVA. She denies missing any doses. Patient has history of CVA in October and TIA in January. Patient has past medical history of hypertension, breast cancer, status post mastectomy, migraine headaches, arthritis, hyperlipidemia, irritable bowel syndrome, osteoporosis. She states that she called her neurologist office, Dr. Escalante, today and was referred to the emergency department. PFSH Past Medical History Arthritis: Yes Asthma: Yes Autoimmune Disease: No Blood Disorders: No Anxiety: No Depression: No Heart Rhythm Problems: No Cancer: Yes (LEFT BREAST, SMALL SQUAMOUS ON HER RIGHT LEG) Cardiovascular Problems: Yes (RAYNAUDS ) High Cholesterol: Yes Chemotherapy: Yes Chest Pain: No Congestive Heart Failure: No COPD: No Cerebrovascular Accident: Yes (10/20/16) Diabetes: No Diminished Hearing: No Endocrine: No Gastrointestinal Disorders: Yes (IBS) GERD: No Genitourinary: No Hiatal Hernia: No Hypertension: Yes Immune Disorder: No Kidney Stones: No Musculoskeletal: Yes (OSTEOPOROSIS) Neurologic: No Psychiatric: No Reproductive: No Respiratory: Yes Migraines: Yes (13 years) Radiation Therapy: No Renal Failure: No Seizures: No Sickle Cell Disease: No Sleep Apnea: No Thyroid Disease: No Ulcer: No Influenza Vaccination: Yes ?: Not Past Surgical History AICD: No Appendectomy: Yes Arteriovenous Shunt: No Body Medical Devices: LOOP RECORDER Genitourinary Surgery: Yes (BLADDER REPAIR) Gynecologic Surgery: Yes (HYSTERECTOMY) Hysterectomy: Yes Insulin Pump: No Joint Replacement: Yes Mastectomy: Yes (LEFT) Neurologic Surgery: Yes (TUMOR REMOVED FROM OUTER EAR) Pacemaker: No Tonsillectomy: Yes Other Surgery: Yes (L mastectomy) Social History Alcohol Use: Yes (1 DRINK DAILY) Tobacco Use: No Substance Use: No Allergies-Medications (Allergen,Severity, Reaction): Coded Allergies: Amlodipine (Verified Allergy, Severe, 03/19/17) Benadryl (Verified Allergy, Severe, 03/19/17) Hydrochlorothiazide (Verified Allergy, Severe, 03/19/17) Reported Meds & Prescriptions Reported Meds & Active Scripts Active Aspirin 325 Mg Tab 325 Mg PO DAILY Plavix (Clopidogrel Bisulfate) 75 Mg Tab 75 Mg PO DAILY Reported Pepcid AC (Famotidine) 10 Mg Tab 10 Mg PO DAILY PRN Zofran (Ondansetron HCl) 4 Mg Tab 4 Mg PO Q6HR PRN Catapres (Clonidine) 0.1 Mg Tab 0.1 Mg PO DAILY PRN [place] (Hydrocodone-Acetaminophen) 10-325 Mg Tab 1 Tab PO BID PRN Caltrate 600+D (Calcium Carbonate-Cholecalciferol) 600-800 Mg-Unit Tab 1 Tab PO DAILY Ventolin Hfa 18 GM Inh (Albuterol Sulfate) 90 Mcg/Act Aer 2 Puff INH DAILY PRN Crestor (Rosuvastatin Calcium) 40 Mg Tab 40 Mg PO BID Gabapentin 600 Mg Tab 600 Mg PO HS Verapamil (Verapamil HCl) 120 Mg Tab 120 Mg PO DAILY Dymista Nasal Gardner (Azelastine-Fluticasone Nasal Gardner) 137-50 Mcg Gardner 1 Gardner EACH NARE BID To each nostril. Duoneb (Ipratropium-Albuterol Neb) 0.5-2.5 Mg/3 Ml Neb 1 Nebule NEB DAILY PRN Azelastine Nasal Gardner (Azelastine HCl) 0.1% Gardner 1 Gardner EACH NARE QID Fish Oil 1000 mg (Brick-3 Fatty Acids) 1 Cap Cap 1,000 Mg PO DAILY One Daily For Women (Multiple Vitamins W/ Minerals) 1 Tab Tab 1 Tab PO DAILY Propranolol (Propranolol HCl) 20 Mg Tab 20 Mg PO HS Zolpidem (Zolpidem Tartrate) 10 Mg Tab 10 Mg PO HS Montelukast (Montelukast Sodium) 10 Mg Tab 10 Mg PO HS Pantoprazole (Pantoprazole Sodium) 40 Mg Tab 40 Mg PO DAILY Synthroid (Levothyroxine Sodium) 75 Mcg Tab 75 Mcg PO DAILY Senokot (Sennosides) 8.6 Mg Tab 8.6 Mg PO HS PRN Review of Systems Except as stated in HPI: all other systems reviewed are Neg Physical Exam Narrative GENERAL: Well-nourished, well-developed female patient, afebrile. SKIN: Focused skin assessment warm/dry. HEAD: Normocephalic. Atraumatic. ENT: Mucosa pink and moist. No erythema or exudates. No uvular edema. No uvular , palatal, or tonsillar deviation. Airway patent. Nasal turbinates appear normal without nasal blood, purulent drainage or septal hematoma. Bilateral tympanic membranes are clear without erythema or perforation. EYES: No scleral icterus. No injection or drainage. NECK: Supple, trachea midline. No JVD or lymphadenopathy. CARDIOVASCULAR: Regular rate and rhythm without murmurs, gallops, or rubs. Bilateral radial and pedal pulses 2+. RESPIRATORY: Breath sounds equal bilaterally. No accessory muscle use. Lungs sounds are clear to auscultation. GASTROINTESTINAL: Abdomen soft, non-tender, nondistended. MUSCULOSKELETAL: No cyanosis, or edema. BACK: Nontender without obvious deformity. No CVA tenderness. Data Data Last Documented VS Vital Signs Date Time Temp Pulse Resp B/P Pulse Ox O2 Delivery O2 Flow Rate FiO2 03/19/17 16:31 70 16 156/74 97 Nasal Cannula 2 03/19/17 15:18 97.9 Orders Electrocardiogram (03/19/17 ) Electrocardiogram (03/19/17 15:52) Prothrombin Time / Inr (Pt) (03/19/17 15:52) Act Partial Throm Time (Ptt) (03/19/17 15:52) Complete Blood Count With Diff (03/19/17 15:52) Comprehensive Metabolic Panel (03/19/17 15:52) Creatine Kinase (Cpk) (03/19/17 15:52) Troponin I (03/19/17 15:52) Urinalysis - C+S If Indicated (03/19/17 15:52) Ct Brain W/O Iv Contrast(Rout) (03/19/17 15:52) Chest, Single Ap (03/19/17 15:52) Ecg Monitoring (03/19/17 15:52) Iv Access Insert/Monitor (03/19/17 15:52) Oximetry (03/19/17 15:52) Sodium Chloride 0.9% Flush (Ns Flush) (03/19/17 16:00) Mri Brain W/O Contrast (03/19/17 ) Mra Brain W/O Contrast (Cow) (03/19/17 ) Magnesium (Mg) (03/19/17 15:52) Morphine Inj (Morphine Inj) (03/19/17 16:45) Ondansetron Inj (Zofran Inj) (03/19/17 16:45) CKMB (03/19/17 16:00) CKMB% (03/19/17 16:00) Aspirin (Aspirin) (03/19/17 17:45) Admit Order (Ed Use Only) (03/19/17 18:17) Labs Laboratory Tests Test 03/19/17 16:00 White Blood Count 8.1 TH/MM3 Red Blood Count 4.08 MIL/MM3 Hemoglobin 11.9 GM/DL Hematocrit 34.8 % Mean Corpuscular Volume 85.3 FL Mean Corpuscular Hemoglobin 29.1 PG Mean Corpuscular Hemoglobin 34.1 % Concent Red Cell Distribution Width 14.5 % Platelet Count 298 TH/MM3 Mean Platelet Volume 7.2 FL Neutrophils (%) (Auto) 66.0 % Lymphocytes (%) (Auto) 18.8 % Monocytes (%) (Auto) 11.0 % Eosinophils (%) (Auto) 3.3 % Basophils (%) (Auto) 0.9 % Neutrophils # (Auto) 5.4 TH/MM3 Lymphocytes # (Auto) 1.5 TH/MM3 Monocytes # (Auto) 0.9 TH/MM3 Eosinophils # (Auto) 0.3 TH/MM3 Basophils # (Auto) 0.1 TH/MM3 CBC Comment DIFF FINAL Differential Comment Prothrombin Time 10.7 SEC Prothromb Time International 1.0 RATIO Ratio Activated Partial 27.9 SEC Thromboplast Time Sodium Level 137 MEQ/L Potassium Level 3.9 MEQ/L Chloride Level 104 MEQ/L Carbon Dioxide Level 25.2 MEQ/L Anion Gap 8 MEQ/L Blood Urea Nitrogen 16 MG/DL Creatinine 1.03 MG/DL Estimat Glomerular Filtration 52 ML/MIN Rate Random Glucose 81 MG/DL Calcium Level 9.4 MG/DL Magnesium Level 2.0 MG/DL Total Bilirubin 0.4 MG/DL Aspartate Amino Transf 45 U/L (AST/SGOT) Alanine Aminotransferase 32 U/L (ALT/SGPT) Alkaline Phosphatase 91 U/L Total Creatine Kinase 998 U/L Creatine Kinase MB 4.6 NG/ML Creatine Kinase MB % 0.5 % Troponin I LESS THAN 0.02 NG/ML Total Protein 7.0 GM/DL Albumin 3.7 GM/DL MDM Medical Decision Making Medical Screen Exam Complete: Yes Emergency Medical Condition: Yes Medical Record Reviewed: Yes Interpretation(s) Chest x-ray - CONCLUSION: No evidence of acute cardiopulmonary disease. Last Impressions Head CT 03/19/171551 Signed Impressions: Service Date/Time: March 16:58 - CONCLUSION: No acute abnormality. Bud Whittaker MD Chest X-Ray 03/19/171551 Signed Impressions: Service Date/Time: March 16:05 - CONCLUSION: No evidence of acute cardiopulmonary disease. Bud Whittaker MD Differential Diagnosis CVA versus TIA versus intracranial hemorrhage Narrative Course 76 year old female presents to the emergency department stating that she had inability to move her right arm and right leg yesterday morning and fell hitting her head due to this. She is on Plavix for previous CVA. She also had a TIA in January according to chart. She called her neurologist office who referred her to the emergency department. EKG, CBC, CMP, CK, troponin, magnesium, PTT, P/INR ordered and pending. CT of the brain and chest x-ray ordered and pending. MRI of the brain without contrast and MRA of the brain alatna of Tiwari are ordered and pending. Ultrasound of the carotid arteries are is ordered and pending. EKG shows sinus rhythm, heart rate 73, no acute ST changes. CBC .shows no acute abnormality. CMP shows creatinine 1.03, AST 45. Magnesium is 2.0. CK is 998. Troponin is less than 0.02. Coags are unremarkable. CT of the brain shows no acute abnormality. Chest x-ray shows no evidence of acute cardiopulmonary disease. Dr. Mascorro with [facility] accepts admission. Diagnosis Primary Impression: TIA (transient ischemic attack) Qualified Code: G45.9 - Transient cerebral ischemia, unspecified type Admitting Information Admitting Physician Requests: Cathy Brink March 19, 2017 16:04
[2017-03-19] MEDS ORDERED: ZOFR4TAB PO (16:18)
[2017-03-19] MEDS ORDERED: CLON.1 PO (16:18)
[2017-03-19] MEDS ORDERED: SENO8.6T5 PO (16:19)
[2017-03-19] MEDS ORDERED: PEPC10TA PO (16:19)
[2017-03-19 16:31] VITALS: BP 156/74; PULSE 70; RESP 16; O2SAT 97
--- NOTE | 2017-03-19 16:35 | RADRPT ---
EXAM DATE/TIME: 03/19/2017 16:05 [facility] COMPARISON: CHEST SINGLE AP, October 20, 2016, 11:59. INDICATIONS : General weakness; fall possible CVA. MEDICAL HISTORY : Hypertension. CVA. Left breast cancer. Asthma. SURGICAL HISTORY : Appendectomy. Hysterectomy. Mastectomy, left. ENCOUNTER: Initial ACUITY: 1 day PAIN SCORE: 0/10 LOCATION: Bilateral chest FINDINGS: No infiltrate, effusion or pneumothorax. Heart size stable come within normal limits. Mediastinal con tours are within normal limits for a supine study. CONCLUSION: No evidence of acute cardiopulmonary disease. Bud Whittaker MD on March 19, 2017 at 16:32 Board Certified Radiologist. This report was verified electronically.
[2017-03-19 16:43] LABS: AUTOMATED NEUTROPHIL # 5.4 TH/MM3 (1.8-7.7); BASOPHIL # 0.1 TH/MM3 (0-0.2); BASOPHIL % 0.9 % (0.0-2.0); EOSINOPHIL # 0.3 TH/MM3 (0-0.4); EOSINOPHIL % 3.3 % (0.0-4.0); HEMATOCRIT 34.8 % (35.0-46.0); HEMO FLAGS DIFF FINAL; LYMPH % 18.8 % (9.0-44.0); LYMPHOCYTE # 1.5 TH/MM3 (1.0-4.8); MEAN CELL VOLUME 85.3 FL (80.0-100.0); MEAN CORPUSCULAR HEMOGLOBIN 29.1 PG (27.0-34.0); MEAN CORPUSCULAR HGB CONC 34.1 % (32.0-36.0); PLATELET COUNT 298 TH/MM3 (150-450); RED BLOOD COUNT 4.08 MIL/MM3 (4.00-5.30); RED CELL DISTRIBUTION WIDTH 14.5 % (11.6-17.2); WHITE BLOOD COUNT 8.1 TH/MM3 (4.0-11.0)
[2017-03-19] MEDS ORDERED: MORPHINE SULFATE 4 MG/ML INJ IV ONE (16:45)
[2017-03-19] MEDS ORDERED: ONDANSETRON HCL 4 MG/2 ML VIAL IVP ONE (16:45)
[2017-03-19 16:47] LABS: APTT (PATIENT) 27.9 SEC (24.3-30.1); PROTHROMBIN TIME - PATIENT 10.7 SEC (9.8-11.6)
[2017-03-19 17:11] LABS: ALT (GPT) 32 U/L (10-53); ANION GAP 8 MEQ/L (5-15); AST (GOT) 45 U/L (15-37); BICARBONATE 25.2 MEQ/L (21.0-32.0); BLOOD UREA NITROGEN 16 MG/DL (7-18); CHLORIDE 104 MEQ/L (98-107); GLOMERULAR FILTRATION RATE 52 ML/MIN (>89); POTASSIUM 3.9 MEQ/L (3.5-5.1); SODIUM (NA) 137 MEQ/L (136-145)
[2017-03-19 17:25] LABS: ALKALINE PHOSPHATASE 91 U/L (45-117); CREATINE KINASE 998 U/L (26-192); TOTAL BILIRUBIN ADULT 0.4 MG/DL (0.2-1.0)
--- NOTE | 2017-03-19 17:33 | RADRPT ---
EXAM DATE/TIME: 03/19/2017 16:58 [facility] COMPARISON: CT BRAIN W/O CONTRAST, January 28, 2017, 15:40. INDICATIONS : Fall. Right upper and lower extremity weakness. Cephalgia. RADIATION DOSE: 45.65 CTDIvol (mGy) MEDICAL HISTORY : Hypertension. SURGICAL HISTORY : benign tumor removed from right occipital region. ENCOUNTER: Initial ACUITY: 1 day PAIN SCALE: 1/10 LOCATION: Bilateral temporal TECHNIQUE: Multiple contiguous axial images were obtained of the head. Using automated exposure control and adj ustment of the mA and/or kV according to patient size, radiation dose was kept as low as reasonably a chievable to obtain optimal diagnostic quality images. FINDINGS: CEREBRUM: The ventricles are normal for age. No evidence of midline shift, mass lesion, hemorrhage or acute in farction. No extra-axial fluid collections are seen. POSTERIOR FOSSA: The cerebellum and brainstem are intact. The 4th ventricle is midline. The cerebellopontine angle i s unremarkable. EXTRACRANIAL: Visualized paranasal sinuses and mastoid air cells are clear. Patient has had previous mastoid surger y on the right. SKULL: The calvaria is intact. No evidence of skull fracture. CONCLUSION: No acute abnormality. Bud Whittaker MD on March 19, 2017 at 17:30 Board Certified Radiologist. This report was verified electronically.
[2017-03-19 17:37] LABS: CKMB 4.6 NG/ML (0.5-3.6)
[2017-03-19] MEDS ORDERED: ASPIRIN 325 MG TAB PO ONE (17:45)
--- NOTE | 2017-03-19 18:18 | RADRPT ---
EXAM DATE/TIME: 03/19/2017 17:33 [facility] COMPARISON: CTA BRAIN W 3D RECON, October 23, 2016, 10:40. MRA BRAIN W/O CONTRAST, October 21, 2016, 11:03. INDICATIONS : Right sided weakness. TIA. MEDICAL HISTORY : Hypertension. Carcinoma, breast. Cerebrovascular disease. SURGICAL HISTORY : Mastectomy, left. Appendectomy. Elbow tendon repair. Right knee surgery. Loop recorder. ENCOUNTER: Subsequent ACUITY: 1 day PAIN SCORE: 0/10 LOCATION: head. Please note a normal MRA of the brain does not entirely exclude the possibility of a small aneurysm, nor the possibility of distal intracranial vessel disease. TECHNIQUE: 3D time of flight MRA was performed. Source images, multiplanar STS MIP, and 3D volume MIP reconstru ctions were reviewed. FINDINGS: There is excellent visualization of the major intracranial arteries out to the second-order branch ve ssels. The examination is unchanged in the prior studies. Again seen is a focal high-grade stenosis involving the terminus of the M1 on the left with extension into the origin of the M2 branches. The r emaining vessels show normal caliber and course. No aneurysms. Persistent circulation noted cameron aterally. No arterial venous malformations. 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 Kee Ellison Jr., MD on March 19, 2017 at 18:13 Board Certified Radiologist. This report was verified electronically.
--- NOTE | 2017-03-19 18:20 | RADRPT ---
EXAM DATE/TIME: 03/19/2017 17:33 [facility] COMPARISON: MRI BRAIN W & W/O CONTRAST, October 20, 2016, 16:10. INDICATIONS : Right sided weakness. TIA. MEDICAL HISTORY : Hypertension. Cerebrovascular disease. Carcinoma, breast. SURGICAL HISTORY : Appendectomy. Mastectomy, left. Elbow tendon repair. Right knee surgery. Loop recorder. ENCOUNTER: Subsequent ACUITY: 1 day PAIN SCORE: 0/10 LOCATION: head. TECHNIQUE: Multiplanar, multisequence MRI of the brain was performed without contrast. FINDINGS: CEREBRUM: The ventricles are normal for age. No evidence of midline shift, mass lesion, hemorrhage or acute in farction. No extraaxial fluid collections are seen. The pituitary gland and suprasellar cistern are normal in configuration. WHITE MATTER: Periventricular high T2 signal abnormality. This is stable. POSTERIOR FOSSA: The cerebellum and brainstem are intact. The 4th ventricle is midline. The cerebellopontine angle is unremarkable. The cerebellar tonsils are normal in position. DIFFUSION IMAGING: No focal areas of restricted diffusion are seen. No evidence of acute infarction. EXTRACRANIAL: The visualized portions of the orbits and paranasal sinuses are unremarkable. CONCLUSION: 1. No acute intracranial abnormality. 2. Chronic small vessel ischemic change. Kee Ellison Jr., MD on March 19, 2017 at 18:16 Board Certified Radiologist. This report was verified electronically.
[2017-03-19 18:26] VITALS: BP 133/64; PULSE 68; RESP 20; O2SAT 98
[2017-03-19] MEDS ORDERED: SODIUM CHLORIDE 0.9% FLUSH 10 ML FLUSH IV FLUSH PRN ×2 (18:30→19:45)
[2017-03-19] MEDS ORDERED: GLUCAGON 1 MG/ML VIAL OTHER PRN (18:30)
[2017-03-19] MEDS ORDERED: DEXTROSE 50% IN WATER 50 ML VIAL(D50) IV PUSH PRN (18:30)
--- NOTE | 2017-03-19 18:35 | PD ---
Physical Exam Narrative GENERAL: Well-nourished, well-developed patient. SKIN: Warm and dry. HEAD: Normocephalic and atraumatic. EYES: No injection or drainage. ENT: No nasal drainage noted. NECK: Supple, trachea midline. CARDIOVASCULAR: Regular rate and rhythm RESPIRATORY: no increased effort. No accessory muscle use. NEUROLOGICAL: Awake. Motor and sensory grossly within normal limits. Normal speech. Data Data Last Documented VS Vital Signs Date Time Temp Pulse Resp B/P Pulse Ox O2 Delivery O2 Flow Rate FiO2 03/19/17 16:31 70 16 156/74 97 Nasal Cannula 2 03/19/17 15:18 97.9 Orders Electrocardiogram (03/19/17 ) Electrocardiogram (03/19/17 15:52) Prothrombin Time / Inr (Pt) (03/19/17 15:52) Act Partial Throm Time (Ptt) (03/19/17 15:52) Complete Blood Count With Diff (03/19/17 15:52) Comprehensive Metabolic Panel (03/19/17 15:52) Creatine Kinase (Cpk) (03/19/17 15:52) Troponin I (03/19/17 15:52) Urinalysis - C+S If Indicated (03/19/17 15:52) Ct Brain W/O Iv Contrast(Rout) (03/19/17 15:52) Chest, Single Ap (03/19/17 15:52) Ecg Monitoring (03/19/17 15:52) Iv Access Insert/Monitor (03/19/17 15:52) Oximetry (03/19/17 15:52) Sodium Chloride 0.9% Flush (Ns Flush) (03/19/17 16:00) Mri Brain W/O Contrast (03/19/17 ) Mra Brain W/O Contrast (Cow) (03/19/17 ) Magnesium (Mg) (03/19/17 15:52) Morphine Inj (Morphine Inj) (03/19/17 16:45) Ondansetron Inj (Zofran Inj) (03/19/17 16:45) CKMB (03/19/17 16:00) CKMB% (03/19/17 16:00) Aspirin (Aspirin) (03/19/17 17:45) Admit Order (Ed Use Only) (03/19/17 18:17) Labs Laboratory Tests Test 03/19/17 16:00 White Blood Count 8.1 TH/MM3 Red Blood Count 4.08 MIL/MM3 Hemoglobin 11.9 GM/DL Hematocrit 34.8 % Mean Corpuscular Volume 85.3 FL Mean Corpuscular Hemoglobin 29.1 PG Mean Corpuscular Hemoglobin 34.1 % Concent Red Cell Distribution Width 14.5 % Platelet Count 298 TH/MM3 Mean Platelet Volume 7.2 FL Neutrophils (%) (Auto) 66.0 % Lymphocytes (%) (Auto) 18.8 % Monocytes (%) (Auto) 11.0 % Eosinophils (%) (Auto) 3.3 % Basophils (%) (Auto) 0.9 % Neutrophils # (Auto) 5.4 TH/MM3 Lymphocytes # (Auto) 1.5 TH/MM3 Monocytes # (Auto) 0.9 TH/MM3 Eosinophils # (Auto) 0.3 TH/MM3 Basophils # (Auto) 0.1 TH/MM3 CBC Comment DIFF FINAL Differential Comment Prothrombin Time 10.7 SEC Prothromb Time International 1.0 RATIO Ratio Activated Partial 27.9 SEC Thromboplast Time Sodium Level 137 MEQ/L Potassium Level 3.9 MEQ/L Chloride Level 104 MEQ/L Carbon Dioxide Level 25.2 MEQ/L Anion Gap 8 MEQ/L Blood Urea Nitrogen 16 MG/DL Creatinine 1.03 MG/DL Estimat Glomerular Filtration 52 ML/MIN Rate Random Glucose 81 MG/DL Calcium Level 9.4 MG/DL Magnesium Level 2.0 MG/DL Total Bilirubin 0.4 MG/DL Aspartate Amino Transf 45 U/L (AST/SGOT) Alanine Aminotransferase 32 U/L (ALT/SGPT) Alkaline Phosphatase 91 U/L Total Creatine Kinase 998 U/L Creatine Kinase MB 4.6 NG/ML Creatine Kinase MB % 0.5 % Troponin I LESS THAN 0.02 NG/ML Total Protein 7.0 GM/DL Albumin 3.7 GM/DL [facility] Supervised Visit with MARIA VICTORIA: Yes Interpretation(s) CBC & BMP Diagram 03/19/17 16:00 Last [address] 03/19/17 1552 Signed Impressions: Service Date/Time: March 16:58 - CONCLUSION: No acute abnormality. Bud Whittaker MD Chest X-Ray 03/19/17 1552 Signed Impressions: Service Date/Time: March 16:05 - CONCLUSION: No evidence of acute cardiopulmonary disease. Bud Whittaker MD Head Magnetic Resonance Angiography 03/19/17 0000 Signed Impressions: Service Date/Time: March 17:33 - CONCLUSION: Stable exam with focal high-grade stenosis involving the terminus of the left M1 with extension into the M2 branch origins. Kee Ellison Jr., MD Brain MRI 03/19/17 0000 Signed Impressions: Service Date/Time: March 17:33 - CONCLUSION: 1. No acute intracranial abnormality. 2. Chronic small vessel ischemic change. Kee Ellison Jr., MD Narrative Course I, Dr. infante, have reviewed the advance practice practitioner's documentation and am in agreement, met with the patient face to face, made the diagnosis, and the medical decision making was done by me. *My assessment and Findings: 76-year-old female presents with right sided weakness and fall. Weakness is now resolved. Patient given aspirin. She will be admitted for further care of TIA. Agrees to plan Physician Communication Physician Communication dr patino agrees to admit Diagnosis Primary Impression: TIA (transient ischemic attack) Qualified Code: G45.9 - Transient cerebral ischemia, unspecified type Admitting Information Admitting Physician Requests: Observation Griselda Infante MD March 19, 2017 18:34
--- NOTE | 2017-03-19 19:38 | HHI.HP ---
[facility] Cecilia Saeed Do, MD Admission Diagnosis TIA Diagnoses: (1) TIA (transient ischemic attack) Diagnosis: Principal (2) Rhabdomyolysis Diagnosis: Principal (3) Renal insufficiency Diagnosis: Principal (4) HTN (hypertension) Diagnosis: Principal Travel History International Travel<30 Days: No Contact w/Intl Traveler <30 Da: No Traveled to Known Affected Are: No History of Present Illness This is a 76-year-old female with a PMH of HTN, Breast CA s/p Mastectomy, Raynaud's, CVA, Migraine and Hyperlipidemia who presented to the ER with strokelike symptoms x1 day. Per patient, woke up yesterday morning and tried to get out of bed but had right-sided weakness w/ subsequent fall, +head trauma , no LOC. Did not seek medical attention at that time. Symptoms resolved. States she called Neurologist's office, Dr. Escalante and was referred to the ER. On arrival, BP 178/94, HR 94, O2 sat 98% on RA, Afebrile. CBC unremarkable. Creatinine 1.03, previously 0.81 on 10/21/16. CPK 998. Troponin negative. CXR with no acute findings. CT Head negative. MRI Brain with no acute intracranial abnormality. MRA Head with stable exam showing focal high- grade stenosis involving terminus of left M1 and M2 branch origins. Currently on ASA and Plavix from previous CVA. Neurology consulted by ER physician. Review of Systems Except as stated in HPI: all other systems reviewed are Neg ROS: 14 point review of systems otherwise negative. Past Family Social History Past Medical History PMH: HTN, Breast CA s/p Mastectomy, Raynaud's, CVA, Migraine and Hyperlipidemia Past Surgical History PAST SURGICAL HISTORY: Appendectomy, Bladder Repair, Hysterectomy, Left Mastectomy, Tonsillectomy Allergies: Coded Allergies: Amlodipine (Verified Allergy, Severe, 03/19/17) Benadryl (Verified Allergy, Severe, 03/19/17) Hydrochlorothiazide (Verified Allergy, Severe, 03/19/17) Family History PAST FAMILY HISTORY: Reviewed. No h/o DM or CAD Social History PAST SOCIAL HISTORY: Occasional alcohol. Negative for tobacco or drugs. Physical Exam Vital Signs Vital Signs Date Time Temp Pulse Resp B/P Pulse Ox O2 Delivery O2 Flow Rate FiO2 03/19/17 18:26 68 20 133/64 98 Nasal Cannula 2 03/19/17 16:31 70 16 156/74 97 Nasal Cannula 2 03/19/17 15:30 88 16 154/90 96 Nasal Cannula 2 03/19/17 15:18 97.9 94 17 178/94 98 Physical Exam PE: GENERAL: Pleasant elderly white female in no acute distress. HEENT: PERRLA, EOMI. No scleral icterus or conjunctival pallor. No lid lag or facial droop. CARDIOVASCULAR: Regular rate and rhythm. No obvious murmurs to auscultation. No chest tenderness to palpation. RESPIRATORY: No obvious rhonchi or wheezing. Clear to auscultation. Breath sounds equal bilaterally. GASTROINTESTINAL: Abdomen soft, non-tender, nondistended. BS normal. MUSCULOSKELETAL: Extremities without clubbing, cyanosis, or edema. No obvious deformities. NEUROLOGICAL: Awake, alert and oriented x4. No focal neurologic deficits. Moving both upper and lower extremities spontaneously. Laboratory Laboratory Tests Test 03/19/17 16:00 White Blood Count 8.1 Red Blood Count 4.08 Hemoglobin 11.9 Hematocrit 34.8 Mean Corpuscular Volume 85.3 Mean Corpuscular Hemoglobin 29.1 Mean Corpuscular Hemoglobin 34.1 Concent Red Cell Distribution Width 14.5 Platelet Count 298 Mean Platelet Volume 7.2 Neutrophils (%) (Auto) 66.0 Lymphocytes (%) (Auto) 18.8 Monocytes (%) (Auto) 11.0 Eosinophils (%) (Auto) 3.3 Basophils (%) (Auto) 0.9 Neutrophils # (Auto) 5.4 Lymphocytes # (Auto) 1.5 Monocytes # (Auto) 0.9 Eosinophils # (Auto) 0.3 Basophils # (Auto) 0.1 CBC Comment DIFF FINAL Differential Comment Prothrombin Time 10.7 Prothromb Time International 1.0 Ratio Activated Partial 27.9 Thromboplast Time Sodium Level 137 Potassium Level 3.9 Chloride Level 104 Carbon Dioxide Level 25.2 Anion Gap 8 Blood Urea Nitrogen 16 Creatinine 1.03 Estimat Glomerular Filtration 52 Rate Random Glucose 81 Calcium Level 9.4 Magnesium Level 2.0 Total Bilirubin 0.4 Aspartate Amino Transf 45 (AST/SGOT) Alanine Aminotransferase 32 (ALT/SGPT) Alkaline Phosphatase 91 Total Creatine Kinase 998 Creatine Kinase MB 4.6 Creatine Kinase MB % 0.5 Troponin I LESS THAN 0.02 Total Protein 7.0 Albumin 3.7 Result Diagram: 03/19/17 1600 03/19/17 1600 Assessment and Plan Problem List: (1) TIA (transient ischemic attack) ICD Code: G45.9 Status: Acute (2) Renal insufficiency ICD Code: N28.9 Status: Acute (3) Rhabdomyolysis ICD Code: M62.82 Status: Acute (4) HTN (hypertension) ICD Code: I10 Status: Acute Assessment and Plan A/P: 1. TIA: H/o CVA 10/2016, now w/ right-sided weakness x1 day, did not seek medical attention at time of symptom onset, currently resolved. Follows w/ Dr. Escalante as outpatient for h/o Migraine, consult placed. CT Head w/ no acute findings, MRI Brain negative for acute findings, MRA Head w/ stable focal high grade stenosis, images reviewed by me. Continue home ASA/Plavix, Statin therapy. 2. Rhabdomyolysis: CPK 998, reports fall yesterday at time of symptom onset, IVF for hydration, check serial CPK for trend. 3. Renal Insufficiency: DARY. Creatinine 1.03, previously 0.81 on 01/28/17. U/ a pending. IVF for hydration, repeat labs in am. 4. HTN: BP 170's on arrival, currently 130's systolic, will continue to monitor. 5. DVT Prophylaxis: SCD/Teds. 6. Social work for d/c planning as needed. 7. Case discussed w/ ER physician at length Problem Qualifiers (1) TIA (transient ischemic attack): Qualified Code: G45.9 - Transient cerebral ischemia, unspecified type Mallorie Lloyd MD March 19, 2017 19:38
[2017-03-19] MEDS ORDERED: BISACODYL 10 MG SUPP RECTAL PRN (19:45)
[2017-03-19] MEDS ORDERED: ACETAMINOPHEN 325 MG TAB PO PRN (19:45)
[2017-03-19] MEDS ORDERED: ONDANSETRON HCL 4 MG/2 ML VIAL IVP PRN (19:45)
[2017-03-19 20:29] VITALS: BP 136/63; PULSE 74; RESP 16; O2SAT 96
[2017-03-19] MEDS: INSULIN ASPART SUPPLEMENTAL SCALE SQ SCH (21:00)
[2017-03-19] MEDS: GABAPENTIN 300 MG CAP PO SCH (21:00)
[2017-03-19] MEDS: SODIUM CHLORIDE 0.9% FLUSH 10 ML FLUSH IV FLUSH SCH (21:00)
[2017-03-19] MEDS: MONTELUKAST SODIUM 10 MG TAB PO SCH (21:00)
[2017-03-19] MEDS ORDERED: SODIUM CHLORIDE 0.9% FLUSH 10 ML FLUSH IV FLUSH SCH (21:00)
[2017-03-19 21:08] VITALS: BP 143/65; PULSE 71; RESP 20; O2SAT 97
[2017-03-19 21:20] LABS: BACTERIA, URINE RARE /hpf; BLOOD, URINE NEG (NEG); COMMENT (UR) CULT NOT INDICATED; CULTURE IF INDICATED CULT NOT INDICATED; GLUCOSE,URINE NEG (NEG); HYALINE CAST, URINE 1 /lpf (RARE); KETONE, URINE NEG (NEG); NITRITE,URINE NEG (NEG); PH, URINE 5.5 (5.0-8.5); SQUAMOUS EPITHELIAL CELL URINE 3 /hpf (0-5); URINE COLOR LIGHT-YELLOW (YELLW/STRAW)
[2017-03-19] MEDS: ACETAMINOPHEN/HYDROcodone 325 MG/5 MG TAB PO PRN (21:34)
[2017-03-19 22:28] LABS: HEMOGLOBIN A1b 1.4 %
[2017-03-19 22:29] LABS: HEMOGLOBIN Ao 85.9 %; HEMOGLOBIN P3 5.2 %
[2017-03-20] VITALS (9 sets, daily range): BP systolic 100–165; BP diastolic 54–78; PULSE 70–86; RESP 16–18; TEMP 95.8–98.4; O2SAT 94–97
[2017-03-20 01:10] LABS: CKMB 3.3 NG/ML (0.5-3.6)
[2017-03-20] MEDS: LEVOTHYROXINE SODIUM 75 MCG TAB PO SCH (06:00)
[2017-03-20] MEDS: ACETAMINOPHEN/HYDROcodone 325 MG/5 MG TAB PO PRN ×2 (06:08→19:24)
[2017-03-20] MEDS: INSULIN ASPART SUPPLEMENTAL SCALE SQ SCH ×4 (06:27→21:00)
[2017-03-20 07:48] LABS: AUTOMATED NEUTROPHIL # 2.7 TH/MM3 (1.8-7.7); BASOPHIL # 0.1 TH/MM3 (0-0.2); BASOPHIL % 1.3 % (0.0-2.0); EOSINOPHIL # 0.3 TH/MM3 (0-0.4); EOSINOPHIL % 5.2 % (0.0-4.0); HEMATOCRIT 35.1 % (35.0-46.0); HEMO FLAGS DIFF FINAL; LYMPH % 29.5 % (9.0-44.0); LYMPHOCYTE # 1.5 TH/MM3 (1.0-4.8); MEAN CORPUSCULAR HEMOGLOBIN 28.2 PG (27.0-34.0); MEAN CORPUSCULAR HGB CONC 32.4 % (32.0-36.0); MONO % 12.6 % (0.0-8.0); NEUT % 51.4 % (16.0-70.0); PLATELET COUNT 237 TH/MM3 (150-450); RED BLOOD COUNT 4.03 MIL/MM3 (4.00-5.30); RED CELL DISTRIBUTION WIDTH 14.2 % (11.6-17.2); WHITE BLOOD COUNT 5.2 TH/MM3 (4.0-11.0)
[2017-03-20 08:11] LABS: ALKALINE PHOSPHATASE 85 U/L (45-117); ALT (GPT) 29 U/L (10-53); ANION GAP 6 MEQ/L (5-15); AST (GOT) 36 U/L (15-37); BICARBONATE 27.9 MEQ/L (21.0-32.0); BLOOD UREA NITROGEN 12 MG/DL (7-18); CHLORIDE 106 MEQ/L (98-107); CREATINE KINASE 635 U/L (26-192); GLOMERULAR FILTRATION RATE 62 ML/MIN (>89); HDL CHOLESTEROL 53.5 MG/DL (40.0-60.0); LDL CHOLESTEROL 78 MG/DL (0-99); SODIUM (NA) 140 MEQ/L (136-145); TOTAL BILIRUBIN ADULT 0.4 MG/DL (0.2-1.0)
[2017-03-20 08:30] LABS: CKMB 2.9 NG/ML (0.5-3.6)
[2017-03-20] MEDS: MULTIVITAMINS/MINERALS THERAPEUTIC TAB PO SCH (08:58)
[2017-03-20] MEDS: ASPIRIN 325 MG TAB PO SCH (08:58)
[2017-03-20] MEDS: SODIUM CHLORIDE 0.9% FLUSH 10 ML FLUSH IV FLUSH SCH ×2 (08:58→21:14)
[2017-03-20] MEDS: PANTOPRAZOLE SOD 40 MG DELAYED RELEASE TAB PO SCH (08:58)
[2017-03-20] MEDS ORDERED: CLOPIDOGREL 75 MG TAB PO SCH (09:00)
[2017-03-20] MEDS: ACETAMINOPHEN/HYDROcodone 325 MG/7.5 MG TAB PO PRN (09:57)
--- NOTE | 2017-03-20 10:20 | HHI.PR ---
Subjective Remarks Follow up for TIA. The patient reports 03/18 the patient tried to get out of bed, noticed right arm/leg weakness, then fell to the ground. She states it took her awhile to get up because she couldn't use the right side of her body. Symptoms lasted approximately 1 hour. She reports worsened acute on chronic right hip pain since the fall and has difficulty ambulating secondary to the pain. She denies any headache, lightheadedness, or dizziness. She has a loop recorder placed over a year ago, followed by Dr. Brito, no significant findings per the patient. After her last stroke, she was placed on plavix in addition to her aspirin. She has been compliant with her medications. She has no other medical complaints at this time. Objective Vitals Vital Signs Date Time Temp Pulse Resp B/P Pulse Ox O2 Delivery O2 Flow Rate FiO2 03/20/17 08:00 96.5 75 16 142/70 95 03/20/17 04:00 96.7 73 16 121/59 95 03/20/17 00:00 96.7 81 16 100/54 95 03/19/17 22:34 18 03/19/17 21:08 71 20 143/65 97 03/19/17 20:29 74 16 136/63 96 Room Air 03/19/17 18:26 68 20 133/64 98 Nasal Cannula 2 03/19/17 16:31 70 16 156/74 97 Nasal Cannula 2 03/19/17 15:30 88 16 154/90 96 Nasal Cannula 2 03/19/17 15:18 97.9 94 17 178/94 98 Result Diagram: 03/20/17 0707 03/20/17 0707 Imaging Last Impressions Head CT 03/19/17 1552 Signed Impressions: Service Date/Time: March 16:58 - CONCLUSION: No acute abnormality. Bud Whittaker MD Chest X-Ray 03/19/17 1552 Signed Impressions: Service Date/Time: March 16:05 - CONCLUSION: No evidence of acute cardiopulmonary disease. Bud Whittaker MD Head Magnetic Resonance Angiography 03/19/17 0000 Signed Impressions: Service Date/Time: March 17:33 - CONCLUSION: Stable exam with focal high-grade stenosis involving the terminus of the left M1 with extension into the M2 branch origins. Kee Ellison Jr., MD Brain MRI 03/19/17 0000 Signed Impressions: Service Date/Time: March 17:33 - CONCLUSION: 1. No acute intracranial abnormality. 2. Chronic small vessel ischemic change. Kee Ellison Jr., MD Objective Remarks GENERAL: Well-nourished, well-developed pleasant elderly female patient in [facility]. SKIN: Warm and dry. No rash. HEENT: Normocephalic. Atraumatic. Pupils equal and round. Mucous membranes pink and moist. NECK: Supple. Trachea midline. CARDIOVASCULAR: Regular rate and rhythm. S1, S2 noted. No murmur appreciated. RESPIRATORY: No accessory muscle use. Clear to auscultation. Breath sounds equal bilaterally. GASTROINTESTINAL: Abdomen soft, non-tender, nondistended. Normoactive bowel sounds x4. MUSCULOSKELETAL: No obvious deformities. Extremities without clubbing, cyanosis , or edema. Right lateral and posterior hip tender to palpation with pain elicited with active and passive ROM. NEUROLOGICAL: Awake and alert. No obvious cranial nerve deficits. Motor grossly within normal limits. 5/5 muscle strength in bilateral upper and lower extremities. Normal speech. No facial droop, lid lag, tongue deviation. PSYCHIATRIC: Appropriate mood and affect; insight and judgment normal. Medications and IVs Current Medications Medications (Trade) Dose Ordered Sig/Kavitha Route Start Time Stop Time Status Last Admin (D50w (Vial) Inj) 25 ml UNSCH PRN IV PUSH 03/19/17 18:30 (Glucagon Inj) 1 mg UNSCH PRN OTHER 03/19/17 18:30 (NS Flush) 2 ml UNSCH PRN IV FLUSH 03/19/17 19:45 (NS Flush) 2 ml BID IV FLUSH 03/19/17 21:00 03/20/17 08:58 (Zofran Inj) 4 mg Q6H PRN IVP 03/19/17 19:45 (Dulcolax Supp) 10 mg DAILY PRN RECTAL 03/19/17 19:45 (Tylenol) 650 mg Q6H PRN PO 03/19/17 19:45 (Pickett 5-325 Mg) 1 tab Q4H PRN PO 03/19/17 19:45 03/20/17 06:08 (Pickett 7.5-325 Mg) 1 tab Q4H PRN PO 03/19/17 19:45 03/20/17 09:57 (Aspirin) 325 mg DAILY PO 03/20/17 09:00 03/20/17 08:58 (Neurontin) 600 mg HS PO 03/19/17 21:00 03/19/17 21:00 (Synthroid) 75 mcg DAILY@06 PO 03/20/17 06:00 03/20/17 06:00 (Singulair) 10 mg HS PO 03/19/17 21:00 03/19/17 21:00 (Protonix) 40 mg DAILY PO 03/20/17 09:00 03/20/17 08:58 (Theragran M Tab) 1 tab DAILY PO 03/20/17 09:00 03/20/17 08:58 (Coumadin) 5 mg DAILY@1600 PO 03/20/17 16:00 (Heparin Inj) 5,000 units Q12HR SQ 03/20/17 10:00 A/P Problem List: (1) TIA (transient ischemic attack) ICD Code: G45.9 Status: Acute (2) Renal insufficiency ICD Code: N28.9 Status: Acute (3) Rhabdomyolysis ICD Code: M62.82 Status: Acute (4) HTN (hypertension) ICD Code: I10 Status: Acute Assessment and Plan 76-year-old female with a PMH of HTN, Breast CA s/p Mastectomy, Raynaud's, CVA, Migraine and Hyperlipidemia who presented to the ER with strokelike symptoms x1 day. TIA, Acute Neurological Deficit: H/o CVA 10/2016, now w/ right-sided weakness x1 day, did not seek medical attention at time of symptom onset, currently improved. -Follows w/ Dr. Escalante as outpatient, consult placed. -CT Head w/ no acute findings, MRI Brain negative for acute findings, MRA Head w/ stable focal high grade stenosis, images reviewed by me. -Continue neuro checks, NIHSS. Consult PT/OT. Monitor on telemetry. -Check echo. -Seen by Dr. Escalante, patient high risk for recurrent CVA, started the patient on coumadin bridging with heparin sq, discontinue plavix, continue aspirin for now. -Continue statin. -Neurology requests patient stay in hospital until INR therapeutic, will admit to inpatient. Rhabdomyolysis: CPK 998, reports fall yesterday at time of symptom onset, IVF for hydration, serial CPK trending down, now 635. Renal Insufficiency: DARY. Creatinine 1.03, previously 0.81 on 01/28/17. U/a unremarkable. IVF for hydration, repeat labs show improvement, Cr 0.89. HTN: BP 170's on arrival, currently 130's systolic, will continue to monitor. DVT Prophylaxis: SCD/Teds. Discussed with Dr. Boateng, Dr. Escalante. Problem Qualifiers (1) TIA (transient ischemic attack): Qualified Code: G45.9 - Transient cerebral ischemia, unspecified type Madelin Lund PA-C March 20, 2017 10:20
--- NOTE | 2017-03-20 10:48 | RADRPT ---
EXAM DATE/TIME: 03/20/2017 10:14 [place] COMPARISON: CHEST SINGLE AP, March 19, 2017, 16:05. INDICATIONS : Pain from multiple falls. MEDICAL HISTORY : Prior fractures to pelvis. SURGICAL HISTORY : None. ENCOUNTER: Initial ACUITY: 4 - 6 days PAIN SCORE: 7/10 LOCATION: Right hip. FINDINGS: The femoral heads are well situated within the acetabular fossa. There are mild degenerative changes. No acute fracture is seen. There are degenerative changes in the pubic symphysis and lower lumbar spine. CONCLUSION: No acute right hip fracture is identified. Maico Lala MD on March 20, 2017 at 10:46 Board Certified Radiologist. This report was verified electronically.
--- NOTE | 2017-03-20 10:57 | MB ---
cc: YOSELIN ZHANG DATE OF CONSULTATION: 03/20/2017 HISTORY OF PRESENT ILLNESS This is a 76-year-old right-handed woman with a history of hypertension, hypercholesterolemia, pneumonia, breast cancer, migraine headaches better on Calan, known left middle cerebral artery stenosis, loop recorder in on Plavix. She was seen on 10/21/[address] Chavez and had left upper extremity weakness on waking at that time. MRI of the brain showed early ischemic change in the parieto-occipital watershed region on the right side. Plavix was added to aspirin. She was seen again by Dr. Chavez on January 28, 2017, developed left arm weakness, some left leg weakness, brought to the hospital. She was on aspirin and Plavix and a statin. Dr. Chavez increased her aspirin to 325. I do not see where an MRI of the brain was done at that time. CT of the head showed stenosis in the distal left M1 segment at that time. CTA of the neck showed 40% stenosis in the left ICA. I just saw the patient on January 14, 2017. I noted that she did have a stroke, left upper extremity weakness with right MCA stroke. The right ICA was okay. There was a small kink distally to the right ICA, not significant. The left MCA may be 70% I thought in the left distal MCA. The right MCA was okay. Echocardiogram was normal. Sed rate was normal. Thyroid was normal. Headache was always in the left gnosticist. She failed multiple meds including Botox but had done better on Calan. She had a loop recorder placed by Dr. Brito. She had a hypercoag abnormality, heterozygous prothrombin gene. The left transverse sinus was absent which I felt was a normal variant on MR venogram of the brain. Nevertheless two days ago she developed some right upper extremity and lower extremity numbness and weakness and fell to the floor. She was on the floor for several hours, did not come in for 24 hours. REVIEW OF SYSTEMS She denies any diabetes, ND, stent, angioplasty, atrial fibrillation, Coumadin, CABG, renal, hepatic or pulmonary disease, thyroid disease, lupus, ulcer, or seizure. SOCIAL HISTORY Not a smoker. Occasional drink. Lives with her . FAMILY HISTORY Negative for cancer, seizure or stroke. PHYSICAL EXAMINATION VITAL SIGNS: She has been in sinus rhythm here. Afebrile, 75, 16, 142/70. Initial blood pressure 178/94. NECK: There are no carotid bruits. HEART: Regular rhythm. I do not detect a murmur. NEUROLOGIC: Pupils are equal. Visual hsu are full. Extraocular movements intact without nystagmus. Face symmetric with normal station. Tongue is midline. There is no drift. She has normal strength in upper and lower extremities bilaterally. DTRs trace throughout. Toes downgoing bilaterally. Pinprick is intact throughout including the right upper extremity. Fast finger movements are normal in the right upper extremity. Gait has been steady. LABORATORY CBC is normal. Sed rate was normal in October. Urine drug screen was negative in January except for some opiates. UA was normal yesterday. Basic metabolic profile normal. LFTs normal. CPK initially 998, came down to 635. Troponin negative. LDL cholesterol 78. IMAGING Chest x-ray: Negative. CAT scan of the brain: No acute abnormality. MRI of the brain done yesterday was read as no acute stroke. MRA lytton of Tiwari done yesterday showed the left M1 abnormality. Review of the MRI films, agree there is no acute infarct. Some white matter changes bilaterally. A right cortically based infarct posterior parietal occipital is old. No hemorrhage is noted. MRA lyt[place] of Tiwari very distal narrowing around the trifurcation of the left MCA. IMPRESSION AND RECOMMENDATIONS TIA, history of right MCA infarcts, left MCA disease. I think at this point since she was on Plavix and aspirin will switch her to Coumadin and we can discharge her when her INR is therapeutic. We are going to discontinue the Plavix at this time and put her on some subcu heparin. MD DIVYA Caro/REJI /9:17 AM /10:39 AM
[2017-03-20] MEDS: HEPARIN SODIUM - SQ 10,000 UNITS/ML VIAL SQ SCH ×2 (10:59→21:15)
[2017-03-20 13:57] LABS: PROTHROMBIN TIME - PATIENT 10.6 SEC (9.8-11.6)
--- NOTE | 2017-03-20 14:51 | EC ---
Study Study Date:03/20/2017 STUDY CONCLUSIONS SUMMARY - Left ventricle: The cavity size was normal. Wall thickness was normal. Systolic function was normal. The estimated ejection fraction was in the range of 55% to 60%. Wall motion was normal; there were no regional wall motion abnormalities. Doppler parameters are consistent with abnormal left ventricular relaxation (grade 1 diastolic dysfunction). - Aortic valve: Mildly calcified annulus. Trileaflet. Trace regurgitation. If LV function is below 40, please consider prescribing an ACEI or ARB or document rationale for non-use. PROCEDURE DATA STUDY STATUS: Elective. Procedure: Transthoracic echocardiography. Image quality was good. Scanning was performed from the parasternal, apical, and subcostal acoustic windows. Study completion: The patient tolerated the procedure well. Transthoracic echocardiography. M-mode, complete 2D, complete spectral Doppler, and color Doppler. Patient status: Inpatient. CARDIAC ANATOMY LEFT VENTRICLE: The cavity size was normal. Wall thickness was normal. Systolic function was normal. The estimated ejection fraction was in the range of 55% to 60%. Wall motion was normal; there were no regional wall motion abnormalities. Doppler parameters are consistent with abnormal left ventricular relaxation (grade 1 diastolic dysfunction). AORTIC VALVE: Mildly calcified annulus. Trileaflet. Doppler: There was no stenosis. Trace regurgitation. MITRAL VALVE: The valve appears to be grossly normal. Doppler: There was no evidence for stenosis. No significant regurgitation. LEFT ATRIUM: The atrium was normal in size. ATRIAL SEPTUM: No defect or patent foramen ovale was identified. RIGHT VENTRICLE: The cavity size was normal. PULMONIC VALVE: Not well visualized. Doppler: There was no evidence for stenosis. No significant regurgitation. TRICUSPID VALVE: The valve appears to be grossly normal. Doppler: There was no evidence for stenosis. Trace regurgitation. PERICARDIUM: There was no pericardial effusion. BASIC MEASUREMENTS ADULT Normal Left ventricle LV internal dimension, ED, chordal level, 46.9 mm 43-52 PLAX LV internal dimension, ES, chordal level, 37.1 mm 23-38 PLAX Fractional shortening, chordal level, PLAX *21 % >29 LV posterior wall thickness, ED 6.41 mm IVS/LVPW ratio, ED *1.54 <1.3 Ventricular septum Septal thickness, ED 9.85 mm Left atrium Anterior-posterior dimension 31 mm Right ventricle RV internal dimension, ED, PLAX 19.1 mm 19-38 DOPPLER MEASUREMENTS ADULT Normal Mitral valve Peak E-wave velocity 58.7 cm/s Peak A-wave velocity 85.9 cm/s Peak E/A ratio 0.7 Tricuspid valve Regurgitant peak velocity 138 cm/s Peak RV-RA gradient, S 8 mm Hg Maximal regurgitant velocity 138 cm/s LEGEND: Mean values are shown as u=mean value. Asterisk (*) cervantes values outside specified normal range. Prepared and signed by Sravan Yanes [id number]
--- NOTE | 2017-03-20 15:41 | EKG ---
Date Performed: 03/19/2017 Time Performed: 16:00:33 PTAGE: 76 years EKG: Sinus rhythm NORMAL ECG PREVIOUS TRACING : 01/28/2017 16.09 DOCTOR: oJhnnie Posey Interpretating Date/Time 03/20/2017 15:34:51
[2017-03-20] MEDS ORDERED: WARFARIN SOD 5 MG TAB PO SCH (16:00)
[2017-03-20] MEDS: GABAPENTIN 300 MG CAP PO SCH (21:15)
[2017-03-20] MEDS: MONTELUKAST SODIUM 10 MG TAB PO SCH (21:15)
[2017-03-21] VITALS (8 sets, daily range): BP systolic 122–188; BP diastolic 68–94; PULSE 66–96; RESP 18–21; TEMP 96.4–97.6; O2SAT 95–98
[2017-03-21 04:49] LABS: PROTHROMBIN TIME - PATIENT 10.7 SEC (9.8-11.6)
[2017-03-21] MEDS: LEVOTHYROXINE SODIUM 75 MCG TAB PO SCH (05:39)
[2017-03-21] MEDS: INSULIN ASPART SUPPLEMENTAL SCALE SQ SCH ×4 (06:19→21:00)
--- NOTE | 2017-03-21 07:34 | HHI.PR ---
Subjective Remarks Patient seen for follow up TIA. 03/21/2017 - patient seen this morning. No acute events overnight. AFVSS. Alma reports TIA sxs (right upper and lower extremity weakness/numbness) resolved. She understands recommendation to remain in the hospital until INR therapeutic, but does request to go home, if possible. No other complaints. No HERNANDEZ, vision change, or new numbness/weakness. Objective Vitals Vital Signs Date Time Temp Pulse Resp B/P Pulse Ox O2 Delivery O2 Flow Rate FiO2 03/21/17 04:00 97.6 66 18 122/68 98 03/20/17 23:47 97.8 86 18 141/73 95 03/20/17 20:30 86 03/20/17 19:15 98.4 83 18 165/78 97 03/20/17 16:00 96.7 82 16 134/66 94 03/20/17 15:31 74 03/20/17 12:00 95.8 70 16 128/61 96 03/20/17 08:00 96.5 75 16 142/70 95 I/O 03/20/17 03/20/17 03/20/17 03/21/17 03/21/17 03/21/17 07:00 15:00 23:00 07:00 15:00 23:00 Intake Total 600 ml 360 ml Balance 600 ml 360 ml Intake Oral 600 ml 360 ml # Voids 4 Result Diagram: 03/20/1770603/20/1707 Objective Remarks GENERAL: Well-nourished, well-developed pleasant elderly female patient in [facility]. SKIN: Warm and dry. No rash. HEENT: Normocephalic. Atraumatic. Pupils equal and round. Mucous membranes pink and moist. NECK: Supple. Trachea midline. CARDIOVASCULAR: Regular rate and rhythm. S1, S2 noted. No murmur appreciated. RESPIRATORY: No accessory muscle use. Clear to auscultation. Breath sounds equal bilaterally. GASTROINTESTINAL: Abdomen soft, non-tender, nondistended. Normoactive bowel sounds x4. MUSCULOSKELETAL: No obvious deformities. Extremities without clubbing, cyanosis , or edema. Right lateral and posterior hip tender to palpation with pain elicited with active and passive ROM. NEUROLOGICAL: Awake and alert. CN II-XII intact. FNF and SUZANNA intact. No pronator drift. Negative romberg. 5/5 strength throughout. Sensation intact to touch throughout. +2 DTRs. Negative babinski. Gait normal. PSYCHIATRIC: Appropriate mood and affect; insight and judgment normal. A/P Problem List: (1) TIA (transient ischemic attack) ICD Code: G45.9 Status: Acute (2) Renal insufficiency ICD Code: N28.9 Status: Acute (3) Rhabdomyolysis ICD Code: M62.82 Status: Acute (4) HTN (hypertension) ICD Code: I10 Status: Acute Assessment and Plan 76-year-old female with a PMH of HTN, Breast CA s/p Mastectomy, Raynaud's, CVA, Migraine and Hyperlipidemia who presented to the ER with strokelike symptoms x1 day. TIA, Acute Neurological Deficit: H/o CVA 10/2016, now w/ right-sided weakness x1 day, did not seek medical attention at time of symptom onset, currently improved. -Follows w/ Dr. Escalante as outpatient, consult placed. They have switched from regimen of aspirin/plavix to warfarin. Okay to DC once INR therapeutic. INR 1.0 today (has received 1 total dose warfarin). Plan to increase dose of warfarin if unchanged tomorrow. As mentioned in HPI, patient would prefer to go home. Will discuss possibility of lovenox bridge with neuro today. -CT Head w/ no acute findings, MRI Brain negative for acute findings, MRA Head w/ stable focal high grade stenosis. -Continue neuro checks, NIHSS. Consult PT/OT. Monitor on telemetry. -Echo essentially unremarkable with normal EF and wall motion. -Continue statin. -PT/OT. Current recommendation for HH with PT. Rhabdomyolysis: Improving. CPK 998 on admission, now 635. Likely 2/2 fall around symptom onset. Renal Insufficiency: Now resolved. Creatinine 1.03, now 0.89. U/a unremarkable. HTN: BP 170's on arrival, now WNL. Monitor. DVT Prophylaxis: Heparin/warfarin bridge. Discharge Planning DC once INR therapeutic Problem Qualifiers (1) TIA (transient ischemic attack): Qualified Code: G45.9 - Transient cerebral ischemia, unspecified type (2) HTN (hypertension): Qualified Code: I10 - Essential hypertension Avery Torres MD R3 March 21, 2017 07:34
[2017-03-21] MEDS: HEPARIN SODIUM - SQ 10,000 UNITS/ML VIAL SQ SCH ×2 (08:59→21:24)
[2017-03-21] MEDS: SODIUM CHLORIDE 0.9% FLUSH 10 ML FLUSH IV FLUSH SCH ×2 (09:00→21:00)
[2017-03-21] MEDS: ASPIRIN 325 MG TAB PO SCH (09:00)
[2017-03-21] MEDS: MULTIVITAMINS/MINERALS THERAPEUTIC TAB PO SCH (09:00)
[2017-03-21] MEDS: PANTOPRAZOLE SOD 40 MG DELAYED RELEASE TAB PO SCH (09:00)
--- NOTE | 2017-03-21 12:01 | HHI.PR ---
Subjective Remarks sr Objective Vital Signs Date Time Temp Pulse Resp B/P Pulse Ox O2 Delivery O2 Flow Rate FiO2 03/21/17 11:48 97.5 92 18 171/89 97 03/21/17 08:07 97.6 95 18 139/85 95 03/21/17 04:00 97.6 66 18 122/68 98 03/20/17 23:47 97.8 86 18 141/73 95 03/20/17 20:30 86 03/20/17 19:15 98.4 83 18 165/78 97 03/20/17 16:00 96.7 82 16 134/66 94 03/20/17 15:31 74 I/O 03/20/17 03/20/17 03/20/17 03/21/17 03/21/17 03/21/17 07:00 15:00 23:00 07:00 15:00 23:00 Intake Total 600 ml 360 ml Balance 600 ml 360 ml Intake Oral 600 ml 360 ml # Voids 4 Result Diagram: 03/20/1707 03/20/17706 Objective Remarks limps 03/20 r Assessment and Plan Assessment and Plan imp tia hx cva inr 1.0 7.5 coumadin check xray r hip Del Escalante MD March 21, 2017 12:01
[2017-03-21] MEDS: ACETAMINOPHEN/HYDROcodone 325 MG/7.5 MG TAB PO PRN ×3 (12:57→21:24)
[2017-03-21] MEDS ORDERED: cloNIDine HCL 0.1 MG TAB PO PRN (13:30)
[2017-03-21] MEDS ORDERED: WARFARIN SOD 7.5 MG TAB PO ONE (16:00)
[2017-03-21] MEDS: ATORVASTATIN 80 MG TAB PO SCH (21:23)
[2017-03-21] MEDS: GABAPENTIN 300 MG CAP PO SCH (21:23)
[2017-03-21] MEDS: MONTELUKAST SODIUM 10 MG TAB PO SCH (21:23)
[2017-03-21] MEDS: PROPRANOLOL HCL 20 MG TAB PO SCH (21:23)
[2017-03-22] VITALS (9 sets, daily range): BP systolic 99–154; BP diastolic 56–82; PULSE 67–76; RESP 18–19; TEMP 96.2–97.3; O2SAT 96–98
[2017-03-22] MEDS: LEVOTHYROXINE SODIUM 75 MCG TAB PO SCH (06:05)
[2017-03-22] MEDS: INSULIN ASPART SUPPLEMENTAL SCALE SQ SCH (06:07)
[2017-03-22 07:59] LABS: APTT (PATIENT) 34.1 SEC (24.3-30.1); INTERNATIONAL NORMALIZED RATIO 1.1 RATIO; PROTHROMBIN TIME - PATIENT 12.7 SEC (9.8-11.6)
[2017-03-22 08:11] LABS: BICARBONATE 28.4 MEQ/L (21.0-32.0); POTASSIUM 3.8 MEQ/L (3.5-5.1)
[2017-03-22] MEDS: PANTOPRAZOLE SOD 40 MG DELAYED RELEASE TAB PO SCH (08:45)
[2017-03-22] MEDS: ASPIRIN 325 MG TAB PO SCH (08:45)
[2017-03-22] MEDS: CALCIUM/VITAMIN D 250 MG/125 U TAB PO SCH (08:45)
[2017-03-22] MEDS: ATORVASTATIN 80 MG TAB PO SCH ×2 (08:45→21:55)
[2017-03-22] MEDS: VERAPAMIL HCL 120 MG TAB PO SCH (08:45)
[2017-03-22] MEDS: MULTIVITAMINS/MINERALS THERAPEUTIC TAB PO SCH (08:45)
[2017-03-22] MEDS: SODIUM CHLORIDE 0.9% FLUSH 10 ML FLUSH IV FLUSH SCH ×2 (08:45→21:00)
[2017-03-22] MEDS: HEPARIN SODIUM - SQ 10,000 UNITS/ML VIAL SQ SCH ×2 (08:46→21:55)
[2017-03-22] MEDS: ACETAMINOPHEN/HYDROcodone 325 MG/7.5 MG TAB PO PRN ×4 (08:51→21:54)
[2017-03-22] MEDS ORDERED: NON-FORMULARY DRUG (Omega-3 Fatty Acids (Fish Oil 1000 mg) 1,000 MG) PO SCH (09:00)
--- NOTE | 2017-03-22 11:47 | HHI.PR ---
Subjective Remarks No acute events overnight. Afebrile, vital signs stable. Patient hypertensive overnight. Patient with no complaints this morning. States she is ready to go home. Objective Vitals Vital Signs Date Time Temp Pulse Resp B/P Pulse Ox O2 Delivery O2 Flow Rate FiO2 03/22/17 08:42 73 03/22/17 08:00 97.0 73 19 134/70 98 03/22/17 04:00 96.4 72 18 99/56 96 03/22/17 00:00 97.3 75 18 154/82 97 03/21/17 20:00 97.2 75 18 185/86 97 03/21/17 19:00 85 03/21/17 16:00 97.4 87 20 142/72 96 03/21/17 13:10 96.4 96 21 188/94 97 03/21/17 11:48 97.5 92 18 171/89 97 I/O 03/21/17 03/21/17 03/21/17 03/22/17 03/22/17 03/22/17 07:00 15:00 23:00 07:00 15:00 23:00 Intake Total 360 ml 480 ml Balance 360 ml 480 ml Intake Oral 360 ml 480 ml # Voids 3 Result Diagram: 03/20/17 0707 03/22/17 0706 Objective Remarks GENERAL: Well-nourished, well-developed pleasant elderly female patient in [facility]. SKIN: Warm and dry. No rash. HEENT: Normocephalic. Atraumatic. Pupils equal and round. Mucous membranes pink and moist. NECK: Supple. Trachea midline. CARDIOVASCULAR: Regular rate and rhythm. S1, S2 noted. No murmur appreciated. RESPIRATORY: No accessory muscle use. Clear to auscultation. Breath sounds equal bilaterally. GASTROINTESTINAL: Abdomen soft, non-tender, nondistended. Normoactive bowel sounds x4. MUSCULOSKELETAL: No obvious deformities. Extremities without clubbing, cyanosis , or edema. Right lateral and posterior hip tender to palpation with pain elicited with active and passive ROM. NEUROLOGICAL: Awake and alert. CN II-XII intact. FNF and SUZANNA intact. No pronator drift. Negative romberg. 5/5 strength throughout. Sensation intact to touch throughout. +2 DTRs. Negative babinski. Gait normal with walker. PSYCHIATRIC: Appropriate mood and affect; insight and judgment normal. A/P Problem List: (1) TIA (transient ischemic attack) ICD Code: G45.9 Status: Acute (2) Renal insufficiency ICD Code: N28.9 Status: Acute (3) Rhabdomyolysis ICD Code: M62.82 Status: Acute (4) HTN (hypertension) ICD Code: I10 Status: Acute Assessment and Plan 76-year-old female with a PMH of HTN, Breast CA s/p Mastectomy, Raynaud's, CVA, Migraine and Hyperlipidemia who presented to the ER with strokelike symptoms x1 day. TIA, Acute Neurological Deficit: H/o CVA 10/2016, now w/ right-sided weakness x1 day, did not seek medical attention at time of symptom onset, currently improved. -Follows w/ Dr. Escalante as outpatient, consult placed. They have switched from regimen of aspirin/plavix to warfarin. Okay to DC once INR therapeutic. INR 1.1 today. Plan to increase dose of warfarin if unchanged tomorrow. -CT Head w/ no acute findings, MRI Brain negative for acute findings, MRA Head w/ stable focal high grade stenosis. -Continue neuro checks, NIHSS. Consult PT/OT. Monitor on telemetry. -Echo essentially unremarkable with normal EF and wall motion. -Continue statin. -PT/OT. Current recommendation for HH with PT. Rhabdomyolysis: Improving. CPK 998 on admission, 635 yesterday. Likely 2/2 fall around symptom onset. Renal Insufficiency: Now resolved. Creatinine 1.03, now 0.91. U/a unremarkable. HTN: BP 170's on arrival, 1 episode of hypertension overnight. Monitor. DVT Prophylaxis: Heparin/warfarin bridge. Problem Qualifiers (1) TIA (transient ischemic attack): Qualified Code: G45.9 - Transient cerebral ischemia, unspecified type (2) HTN (hypertension): Qualified Code: I10 - Essential hypertension Amaya Carlos MD R3 March 22, 2017 11:47
[2017-03-22] MEDS ORDERED: DOCUSATE SODIUM 50 MG/SENNA 8.6 MG TAB PO ONE (12:00)
[2017-03-22] MEDS ORDERED: WARFARIN SOD 5 MG TAB PO SCH (16:00)
--- NOTE | 2017-03-22 17:19 | HHI.PR ---
Subjective Remarks sr Objective Vital Signs Date Time Temp Pulse Resp B/P Pulse Ox O2 Delivery O2 Flow Rate FiO2 03/22/17 16:00 96.3 67 19 131/68 96 03/22/17 12:00 96.6 73 19 130/68 97 03/22/17 08:42 73 03/22/17 08:00 97.0 73 19 134/70 98 03/22/17 04:00 96.4 72 18 99/56 96 03/22/17 00:00 97.3 75 18 154/82 97 03/21/17 20:00 97.2 75 18 185/86 97 03/21/17 19:00 85 I/O 03/21/17 03/21/17 03/21/17 03/22/17 03/22/17 03/22/17 07:00 15:00 23:00 07:00 15:00 23:00 Intake Total 360 ml 480 ml 240 ml Balance 360 ml 480 ml 240 ml Intake Oral 360 ml 480 ml 240 ml # Voids 3 5 # Bowel Movements 0 Result Diagram: 03/20/17 0707 03/22/17 0706 Objective Remarks nl speech limps 03/20 r Assessment and Plan Assessment and Plan imp tia hx cva inr 1.0 10 coumadin check xray r hip neg stable Del Escalante MD March 22, 2017 17:19
[2017-03-22] MEDS ORDERED: WARFARIN SOD 10 MG TAB PO ONE (18:00)
[2017-03-22] MEDS ORDERED: WARFARIN SOD 5 MG TAB PO ONE (18:00)
[2017-03-22] MEDS: GABAPENTIN 300 MG CAP PO SCH (21:54)
[2017-03-22] MEDS: MONTELUKAST SODIUM 10 MG TAB PO SCH (21:54)
[2017-03-22] MEDS: PROPRANOLOL HCL 20 MG TAB PO SCH (21:55)
[2017-03-23 04:00] VITALS: BP 131/69; PULSE 82; RESP 18; TEMP 97.8; O2SAT 94
[2017-03-23] MEDS: LEVOTHYROXINE SODIUM 75 MCG TAB PO SCH (06:53)
[2017-03-23 07:33] LABS: INTERNATIONAL NORMALIZED RATIO 1.8 RATIO; PROTHROMBIN TIME - PATIENT 20.7 SEC (9.8-11.6)
--- NOTE | 2017-03-23 08:05 | HHI.PR ---
Subjective Remarks sr Objective Vital Signs Date Time Temp Pulse Resp B/P Pulse Ox O2 Delivery O2 Flow Rate FiO2 03/23/17 04:00 97.8 82 18 131/69 94 03/22/17 22:55 96.2 72 18 149/67 97 03/22/17 19:00 75 03/22/17 16:00 96.3 67 19 131/68 96 03/22/17 12:00 96.6 73 19 130/68 97 03/22/17 08:42 73 I/O 03/22/17 03/22/17 03/22/17 03/23/17 03/23/17 03/23/17 07:00 15:00 23:00 07:00 15:00 23:00 Intake Total 240 ml Balance 240 ml Intake Oral 240 ml # Voids 3 5 4 # Bowel Movements 0 Result Diagram: 03/20/1707 03/22/17 0706 Objective Remarks nl speech nad Assessment and Plan Assessment and Plan imp tia hx cva inr 1.0 10 coumadin check xray r hip neg stable 03/23/17 got 15mg total coumadin yest instead of 10 we are looking into how this occurred check 2 pm inr inr 1.8 this am dc asa and hep looking good neurowise this may extend staty a bit as we do not want her to overshoot and will likely need to keep and recheck am inr tomorrow Del Escalante MD March 23, 2017 08:05
[2017-03-23 08:13] VITALS: BP 157/74; PULSE 84; RESP 18; TEMP 97.8; O2SAT 96
[2017-03-23] MEDS: PANTOPRAZOLE SOD 40 MG DELAYED RELEASE TAB PO SCH (08:47)
[2017-03-23] MEDS: CALCIUM/VITAMIN D 250 MG/125 U TAB PO SCH (08:48)
[2017-03-23] MEDS: VERAPAMIL HCL 120 MG TAB PO SCH (08:48)
[2017-03-23] MEDS: ATORVASTATIN 80 MG TAB PO SCH ×2 (08:48→20:22)
[2017-03-23] MEDS: MULTIVITAMINS/MINERALS THERAPEUTIC TAB PO SCH (08:48)
[2017-03-23] MEDS: ACETAMINOPHEN/HYDROcodone 325 MG/7.5 MG TAB PO PRN (08:57)
[2017-03-23] MEDS: SODIUM CHLORIDE 0.9% FLUSH 10 ML FLUSH IV FLUSH SCH ×2 (09:00→20:22)
--- NOTE | 2017-03-23 11:21 | HHI.PR ---
Subjective Remarks Follow up TIA. No numbness/tingling/weakness. She feels that her symptoms have pretty much resolved. No complaints at this time. Objective Vitals Vital Signs Date Time Temp Pulse Resp B/P Pulse Ox O2 Delivery O2 Flow Rate FiO2 03/23/17 08:13 97.8 84 18 157/74 96 03/23/17 04:00 97.8 82 18 131/69 94 03/22/17 22:55 96.2 72 18 149/67 97 03/22/17 19:00 75 03/22/17 16:00 96.3 67 19 131/68 96 03/22/17 12:00 96.6 73 19 130/68 97 I/O 03/22/17 03/22/17 03/22/17 03/23/17 03/23/17 03/23/17 06:59 14:59 22:59 06:59 14:59 22:59 Intake Total 240 ml Balance 240 ml Intake Oral 240 ml # Voids 3 5 4 # Bowel Movements 0 Result Diagram: 03/20/17 0707 03/22/17 0706 Imaging Last Impressions Hip and Pelvis X-Ray 03/20/17 0000 Signed Impressions: Service Date/Time: Monday, March 20, 2017 10:14 - CONCLUSION: No acute right hip fracture is identified. Maico Lala MD Head CT 03/19/17 1552 Signed Impressions: Service Date/Time: March 16:58 - CONCLUSION: No acute abnormality. Bud Whittaker MD Chest X-Ray 03/19/17 1552 Signed Impressions: Service Date/Time: March 16:05 - CONCLUSION: No evidence of acute cardiopulmonary disease. Bud Whittaker MD Head Magnetic Resonance Angiography 03/19/17 0000 Signed Impressions: Service Date/Time: March 17:33 - CONCLUSION: Stable exam with focal high-grade stenosis involving the terminus of the left M1 with extension into the M2 branch origins. Kee Ellison Jr., MD Brain MRI 03/19/17 0000 Signed Impressions: Service Date/Time: March 17:33 - CONCLUSION: 1. No acute intracranial abnormality. 2. Chronic small vessel ischemic change. Kee Ellison Jr., MD Objective Remarks General: Elderly female in no acute distress. Heart: Regular rate and rhythm. No murmur. Lungs: Clear to auscultation bilaterally. No wheezes, rales, or rhonchi. Breathing is nonlabored. Abdomen: Soft, nontender, nondistended. Extremities: No lower extremity edema. Psych: Alert and oriented. Procedures None Urinary Catheter: No Vascular Central Line Catheter: No A/P Problem List: (1) TIA (transient ischemic attack) ICD Code: G45.9 Status: Acute (2) Renal insufficiency ICD Code: N28.9 Status: Acute (3) Rhabdomyolysis ICD Code: M62.82 Status: Acute (4) HTN (hypertension) ICD Code: I10 Status: Chronic Assessment and Plan 1. TIA, acute neurologic deficit: Patient has history of CVA in October 2016. She presented with right-sided weakness, which has improved. Appreciate neurology recommendations. Dr. Escalante has recommended warfarin. Monitor INR. We'll keep in hospital until INR is therapeutic. There is concern that she may overshoot therapeutic range. CT and MRI of the brain show no acute findings. MRA of the brain shows stable focal high-grade stenosis. Continue PT/OT, telemetry. Echocardiogram is unremarkable. Continue statin. 2. Rhabdomyolysis: Improving. Likely secondary to fall. 3. Acute renal insufficiency: Resolved. 4. Hypertension: Continue verapamil, propranolol. Clonidine as needed. 5. DVT prophylaxis: Heparin, warfarin. Discharge Planning Plan for discharge when cleared by neurology. Awaiting therapeutic INR. Problem Qualifiers (1) TIA (transient ischemic attack): Qualified Code: G45.9 - Transient cerebral ischemia, unspecified type (2) HTN (hypertension): Qualified Code: I10 - Essential hypertension Mateo Mascorro MD March 23, 2017 11:21
[2017-03-23 12:53] VITALS: BP_SYST 121; BP_SYST 137; BP_DIAS 70; BP_DIAS 79; PULSE 75; PULSE 79; RESP 18; TEMP 97.7; TEMP 99.2; O2SAT 97; O2SAT 98
[2017-03-23 15:25] LABS: INTERNATIONAL NORMALIZED RATIO 2.3 RATIO; PROTHROMBIN TIME - PATIENT 26.1 SEC (9.8-11.6)
[2017-03-23] MEDS ORDERED: WARFARIN SOD 5 MG TAB PO SCH (16:00)
[2017-03-23 16:59] VITALS: PULSE 76
[2017-03-23 17:03] VITALS: BP 127/66; PULSE 71; RESP 16; TEMP 96.2; O2SAT 97
[2017-03-23] MEDS: GABAPENTIN 300 MG CAP PO SCH (20:21)
[2017-03-23] MEDS: PROPRANOLOL HCL 20 MG TAB PO SCH (20:21)
[2017-03-23] MEDS: MONTELUKAST SODIUM 10 MG TAB PO SCH (20:22)
[2017-03-23 21:02] VITALS: BP 155/72; PULSE 81; RESP 20; TEMP 97.1; O2SAT 98
[2017-03-23] MEDS ORDERED: ZOLPIDEM TARTRATE 10 MG TAB PO PRN (23:45)
[2017-03-24] VITALS: BP 140/81; PULSE 84; RESP 20; TEMP 97.2; O2SAT 98
[2017-03-24 04:00] VITALS: BP 139/80; PULSE 79; RESP 18; TEMP 97.5; O2SAT 98
[2017-03-24] MEDS: LEVOTHYROXINE SODIUM 75 MCG TAB PO SCH (06:15)
[2017-03-24 07:23] LABS: INTERNATIONAL NORMALIZED RATIO 2.6 RATIO; PROTHROMBIN TIME - PATIENT 29.5 SEC (9.8-11.6)
--- NOTE | 2017-03-24 07:36 | HHI.PR ---
Subjective Remarks sr Objective Vital Signs Date Time Temp Pulse Resp B/P Pulse Ox O2 Delivery O2 Flow Rate FiO2 03/24/17 04:00 97.5 79 18 139/80 98 03/24/17 04:00 Room Air 03/24/17 00:00 97.2 84 20 140/81 98 03/24/17 00:00 Room Air 03/23/17 21:02 97.1 81 20 155/72 98 03/23/17 20:00 Room Air 03/23/17 17:03 96.2 71 16 127/66 97 03/23/17 16:59 76 03/23/17 12:53 97.7 79 18 137/70 97 03/23/17 08:13 97.8 84 18 157/74 96 I/O 03/23/17 03/23/17 03/23/17 03/24/17 03/24/17 03/24/17 07:00 15:00 23:00 07:00 15:00 23:00 Intake Total 960 ml Balance 960 ml Intake Oral 960 ml # Voids 4 3 3 Result Diagram: 03/20/1707 03/22/17 0706 Objective Remarks nl speech nad Assessment and Plan Assessment and Plan imp tia hx cva inr 1.0 10 coumadin check xray r hip neg stable 03/23/17 got 15mg total coumadin yest instead of 10 we are looking into how this occurred check 2 pm inr 03/24/17 inr 2.6 this am ok dc no coumadin today and we will check o/p inr in am inr 1.8 this am dc asa and hep looking good neurowise this may extend staty a bit as we do not want her to overshoot and will likely need to keep and recheck am inr tomorrow Del Escalante MD March 24, 2017 07:36
[2017-03-24] MEDS: CALCIUM/VITAMIN D 250 MG/125 U TAB PO SCH (08:07)
[2017-03-24] MEDS: VERAPAMIL HCL 120 MG TAB PO SCH (08:07)
[2017-03-24] MEDS: PANTOPRAZOLE SOD 40 MG DELAYED RELEASE TAB PO SCH (08:07)
[2017-03-24] MEDS: MULTIVITAMINS/MINERALS THERAPEUTIC TAB PO SCH (08:07)
[2017-03-24] MEDS: ATORVASTATIN 80 MG TAB PO SCH (08:07)
[2017-03-24] MEDS: ACETAMINOPHEN/HYDROcodone 325 MG/7.5 MG TAB PO PRN (08:15)
[2017-03-24 08:16] VITALS: BP 134/70; PULSE 85; RESP 16; TEMP 97.9; O2SAT 94
[2017-03-24] MEDS: SODIUM CHLORIDE 0.9% FLUSH 10 ML FLUSH IV FLUSH SCH (09:00)
--- NOTE | 2017-03-24 09:42 | HHI.DCPOC ---
Discharge Care Plan Diagnosis: (1) HTN (hypertension) (2) Rhabdomyolysis (3) Renal insufficiency (4) TIA (transient ischemic attack) Goals to Promote Your Health * To prevent worsening of your condition and complications * To maintain your health at the optimal level Directions to Meet Your Goals Take your medications as prescribed Follow your dietary instruction Follow activity as directed Keep your appointments as scheduled Take your immunizations and boosters as scheduled If your symptoms worsen call your PCP, if no PCP go to Urgent Care Center or Emergency Room Smoking is Dangerous to Your Health. Avoid second hand smoke Call the 24-hour hour crisis hotline for domestic abuse at Mateo Mascorro MD March 24, 2017 09:42
--- NOTE | 2017-03-24 09:47 | HHI.DS ---
Discharge Summary Admission Date March 20, 2017 at 10:17 Discharge Date: March 24, 2017 Admitting Diagnosis TIA (1) TIA (transient ischemic attack) ICD Code: G45.9 (2) Renal insufficiency ICD Code: N28.9 (3) Rhabdomyolysis ICD Code: M62.82 (4) HTN (hypertension) ICD Code: I10 Procedures None Brief History - From Admission This is a 76-year-old female with a PMH of HTN, Breast CA s/p Mastectomy, Raynaud's, CVA, Migraine and Hyperlipidemia who presented to the ER with strokelike symptoms x1 day. Per patient, woke up yesterday morning and tried to get out of bed but had right-sided weakness w/ subsequent fall, +head trauma , no LOC. Did not seek medical attention at that time. Symptoms resolved. States she called Neurologist's office, Dr. Escalante and was referred to the ER. On arrival, BP 178/94, HR 94, O2 sat 98% on RA, Afebrile. CBC unremarkable. Creatinine 1.03, previously 0.81 on 10/21/16. CPK 998. Troponin negative. CXR with no acute findings. CT Head negative. MRI Brain with no acute intracranial abnormality. MRA Head with stable exam showing focal high- grade stenosis involving terminus of left M1 and M2 branch origins. Currently on ASA and Plavix from previous CVA. Neurology consulted by ER physician. CBC/BMP: 03/20/17 0707 03/22/17 0706 Significant Findings Laboratory Tests Test 03/22/17 03/23/17 03/23/17 03/24/17 07:06 06:46 15:00 06:34 Prothrombin Time 12.7 SEC 20.7 SEC 26.1 SEC 29.5 SEC (9.8-11.6) (9.8-11.6) (9.8-11.6) (9.8-11.6) Activated Partial 34.1 SEC Thromboplast Time (24.3-30.1) Estimat Glomerular Filtration 60 ML/MIN (>89) Rate Imaging Last Impressions Hip and Pelvis X-Ray 03/20/17 0000 Signed Impressions: Service Date/Time: Monday, March 20, 2017 10:14 - CONCLUSION: No acute right hip fracture is identified. Maico Lala MD Head CT 03/19/17 1552 Signed Impressions: Service Date/Time: March 16:58 - CONCLUSION: No acute abnormality. Bud Whittaker MD Chest X-Ray 03/19/17 1552 Signed Impressions: Service Date/Time: March 16:05 - CONCLUSION: No evidence of acute cardiopulmonary disease. Bud Whittaker MD Head Magnetic Resonance Angiography 03/19/17 0000 Signed Impressions: Service Date/Time: March 17:33 - CONCLUSION: Stable exam with focal high-grade stenosis involving the terminus of the left M1 with extension into the M2 branch origins. Kee Ellison Jr., MD Brain MRI 03/19/17 0000 Signed Impressions: Service Date/Time: March 17:33 - CONCLUSION: 1. No acute intracranial abnormality. 2. Chronic small vessel ischemic change. Kee Ellison Jr., MD PE at Discharge General: Elderly female in no acute distress. Heart: Regular rate and rhythm. No murmur. Lungs: Clear to auscultation bilaterally. No wheezes, rales, or rhonchi. Breathing is nonlabored. Abdomen: Soft, nontender, nondistended. Extremities: No lower extremity edema. Psych: Alert and oriented. Pt update on day of discharge The patient has no complaints at this time. Has had ongoing headache for a few days, but not any worse. No vision changes. No numbness, tingling, or weakness of her extremities. She wants to go home. Hospital Course The patient was admitted for evaluation of acute neurologic deficit. This is felt to be TIA as the symptoms resolved. Neurology was consulted. MRI of the brain and CT of the head were negative. MRA of the head showed stable focal high -grade stenosis. Neurology recommended changing from aspirin/Plavix to anticoagulation with Coumadin. The patient was placed on IV fluids for rhabdomyolysis, which improved. Renal insufficiency improved with IV hydration as well. PT/ST/OT were continued. Patient's INR was monitored, and the patient was cleared for discharge by neurology when the INR became therapeutic. She was felt to be stable for discharge home. Pt Condition on Discharge: Stable Discharge Disposition: Discharge Home Discharge Time: > 30 minutes Discharge Instructions DIET: Follow Instructions for: Heart Healthy Diet Speech Therapy-Diet Recommends: Regular Activities you can perform: Regular-No Restrictions Follow up Referrals: Neurology - Next Day with Del Escalante MD PCP Follow-up - 1 Week New Orders: PT/INR - Next Day Continued Medications: Albuterol 18 GM Inh (Ventolin Hfa 18 GM Inh) 90 Mcg/Act Aer 2 PUFF INH DAILY PRN SHORTNESS OF BREATH #1 Ref 0 INHALER Azelastine-Fluticasone Nasal [place] (Dymista Nasal [place]) 137-50 Mcg [place] 1 SPRAY EACH NARE BID To each nostril. Allergies #1 Ref 0 BOTTLE Calcium Carbonate-Cholecalciferol (Caltrate 600+D) 600-800 Mg-Unit Tab 1 TAB PO DAILY Calcium Supplement Ref 0 TAB Clonidine (Catapres) 0.1 Mg Tab 0.1 MG PO DAILY PRN SBP >160 DBP >100 #1 Ref 0 TAB Famotidine (Pepcid AC) 10 Mg Tab 10 MG PO DAILY PRN HEARTBURN TAB Gabapentin (Gabapentin) 600 Mg Tab 600 MG PO HS #30 Ref 0 TAB Hydrocodone-Acetaminophen (Boyd) 10-325 Mg Tab 1 TAB PO BID PRN PAIN Ref 0 TAB Ipratropium-Albuterol Neb (Duoneb) 0.5-2.5 Mg/3 Ml Neb 1 NEBULE NEB DAILY PRN SHORTNESS OF BREATH #30 Ref 0 NEBULE Levothyroxine (Synthroid) 75 Mcg Tab 75 MCG PO DAILY Thyroid #30 Ref 0 TAB Montelukast (Montelukast) 10 Mg Tab 10 MG PO HS #30 Ref 0 TAB Multiple Vitamins W/ Minerals (One Daily For Women) 1 Tab Tab 1 TAB PO DAILY [place]-3 Fatty Acids (Fish Oil 1000 mg) 1 Cap Cap 1000 MG PO DAILY Ondansetron (Zofran) 4 Mg Tab 4 MG PO Q6HR PRN NAUSEA OR VOMITING Ref 0 TAB Pantoprazole (Pantoprazole) 40 Mg Tab 40 MG PO DAILY Reflux #30 Ref 0 TAB Propranolol (Propranolol) 20 Mg Tab 20 MG PO HS #90 Ref 0 TAB Rosuvastatin (Crestor) 40 Mg Tab 40 MG PO BID Cholesterol Management #30 Ref 0 TAB Sennosides (Senokot) 8.6 Mg Tab 8.6 MG PO HS PRN CONSTIPATION #30 Ref 0 TAB Verapamil (Verapamil) 120 Mg Tab 120 MG PO DAILY #60 Ref 0 TAB Zolpidem (Zolpidem) 10 Mg Tab 10 MG PO HS INSOMNIA Ref 0 TAB Discontinued Medications: Aspirin (Aspirin) 325 Mg Tab 325 MG PO DAILY #30 Ref 0 TAB Azelastine Nasal [place] (Azelastine Nasal [place]) 0.1% [place] 1 SPRAY EACH NARE QID Allergies #1 Ref 0 BOTTLE Clopidogrel (Plavix) 75 Mg Tab 75 MG PO DAILY Stroke Prevention #30 TAB Mateo Mascorro MD March 24, 2017 09:47
== END 2017-03-24 10:25 | disposition home or self-care (01) | DRG 69 ==
LOC: NEPC 15:14 → NEDA 18:19 → NEPFCDU 21:01 → OBSVTOIN 03-20 10:17 → N05A 03-21 12:51
PROVIDERS: ADMIT Family Medicine; ATTEND Family Medicine
DX: G45.9 Transient cerebral ischemic attack, unspecified (principal); N17.9 Acute kidney failure, unspecified; M62.82 Rhabdomyolysis; I69.251 Hemiplegia and hemiparesis following other nontraumatic intracranial hemorrhage affecting right dominant side; I10 Essential (primary) hypertension; I65.22 Occlusion and stenosis of left carotid artery; G43.909 Migraine, unspecified, not intractable, without status migrainosus; E78.5 Hyperlipidemia, unspecified; I73.00 Raynaud's syndrome without gangrene; M81.0 Age-related osteoporosis without current pathological fracture; Z79.02 Long term (current) use of antithrombotics/antiplatelets
CPT/HCPCS: 70450; 70544; 70551; 71010; 73502; 80048; 80053; 80061; 81001; 82550; 82552; 82948; 83036; 83735; 84484; 85025; 85610; 85730; 93005; 93306; 96374; 96375; G0378; G8996-GN; G8997-GN; G8998-GN; J1644; J2270; J2405

== ENCOUNTER 2018-04-01 15:11 | Emergency (ER) | END 2018-04-01 17:30 | disposition left against medical advice (07) | DX: H92.09 Otalgia, unspecified ear (principal) ==